=== PATIENT | male | born 1970 | race Hispanic/Latino ===

== ENCOUNTER 2024-06-12 18:44 | Emergency (ER) | payer OTHER ==
[~2024-06-12] VITALS: Ht 165.1 cm; Wt 75.7 kg
[2024-06-12] MEDS: ketOROlac 60 MG VIAL (30MG/ML) IM ONE (20:40)
[2024-06-12] MEDS: CYCLOBENZAPRINE HCL 10 MG TABLET PO ONE (20:40)
[2024-06-12] MEDS: dexaMETHasone SOD PHOSPHATE 4 MG/ML 1ML VIAL IM ONE (20:40)
[2024-06-12 20:58] VITALS: BP 138/74; PULSE 70; RESP 16; TEMP 98; O2SAT 98
[2024-06-12] MEDS ORDERED: IBUP-2077 PO (21:06)
[2024-06-12] MEDS ORDERED: CYCL10TA16 PO (21:06)
[2024-06-12] MEDS ORDERED: METH4TAB3 PO (21:06)
== END 2024-06-12 21:50 | disposition home or self-care (01) ==
LOC: EDH 18:44
DX: G57.01 Lesion of sciatic nerve, right lower limb (principal); I10 Essential (primary) hypertension; I25.2 Old myocardial infarction; Z98.890 Other specified postprocedural states
CPT/HCPCS: 99284; 72100; 96372 ×2; J1100; J1885

== ENCOUNTER 2024-10-26 23:44 | Observation (INO) | payer OTHER ==
[~2024-10-26] VITALS: Ht 165.1 cm; Wt 77.6 kg
[~2024-10-26 23:44] MED LIST: CYCL10TA16 PO; IBUP-2077 PO; METH4TAB3 PO
[2024-10-27] VITALS (11 sets, daily range): BP systolic 121–152; BP diastolic 65–75; PULSE 65–99; RESP 18–22; TEMP 98–98.4; O2SAT 97–100
[2024-10-27 00:18] LABS: CREATININE 1.3 mg/dL (0.5-1.3); POTASSIUM 3.8 mmol/L (3.5-5.1)
[2024-10-27 00:52] LABS: BASOPHILS # (AUTO) 0.03 K/uL (0.00-0.20); BASOPHILS % (AUTO) 0.4 % (0.0-5.0); EOSINOPHILS # (AUTO) 0.33 K/uL (0.00-0.70); EOSINOPHILS % (AUTO) 4.2 % (0.0-8.0); HEMATOCRIT 25.5 % (42-54); IMMATURE GRANULOCYTE ABSOLUTE 0.03 K/uL (0-1); LYMPHOCYTES # (AUTO) 1.3 K/uL (1.0-4.8); MEAN CORPUSCULAR HEMOGLOBIN 21.3 pg (27.0-33.0); MEAN CORPUSCULAR HGB CONC 29.4 g/dL (32.0-36.0); MEAN CORPUSCULAR VOLUME 72.4 fL (79-99); MONOCYTES # (AUTO) 0.4 K/uL (0.1-1.0); MONOCYTES % (AUTO) 5.2 % (3.0-13.0); NEUTROPHILS # (AUTO) 5.7 K/uL (1.8-7.7); NEUTROPHILS % (AUTO) 72.8 % (40.0-77.0); PLATELET COUNT (AUTO) 364 K/uL (130-400); RED BLOOD CELL COUNT(AUTO) 3.52 MIL/uL (4.50-6.20); RED CELL DISTRIBUTION WIDTH 19.4 % (11.0-15.5); WHITE BLOOD COUNT (AUTO) 7.8 K/uL (4.8-10.8)
[2024-10-27 01:01] LABS: ADD UA MICROSCOPIC NO; APPEARANCE,URINE CLEAR (CLEAR); BILIRUBIN,URINE NEGATIVE (NEGATIVE); COLOR,URINE COLORLESS (YELLOW); GLUCOSE, URINE (UA) NEGATIVE (NEGATIVE); KETONES,URINE NEGATIVE (NEGATIVE); LEUKOCYTE ESTERASE ,URINE NEGATIVE Leu/uL (NEGATIVE); NITRATE,URINE NEGATIVE (NEGATIVE); OCCULT BLOOD,URINE NEGATIVE (NEGATIVE); PROTEIN,URINE NEGATIVE (NEGATIVE); UROBILINOGEN,URINE 0.2 mg/dL (0.2-1.0)
--- NOTE | 2024-10-27 01:03 | ERN ---
ED Note History of Present Illness Stated Complaint: HYPERTENSION Chief Complaint: Hypertension Time Seen by MD: 23:47 Dictation: This is a 54-year-old male who stated that he woke up feeling a rubbing his chest and checked his blood pressure which was 200 over something. He had car diac stents placed recently 2 months ago in [place]. He reports that he takes Plavix and he also reports a cough for the past 1 month. He stated that he has been short of breath and unable to lay flat. He has a very scant amounts of sputum but denied any hemoptysis. No fevers chills He has smoked quite heavily for many years and stated that he quit a month ago. He has never been formally diagnosed with COPD. He also had heavy hemorrhoidal bleeding in the past few months. He was recently admitted to [facility] in [place] and was given 1 unit of blood for severe anemia. He recalls that there might have been EGD and he does not recall anyone telling him that he had ulcers. He does not believe that he had colonoscopy. Temperature 97.2 pulse 93 respirations 20 blood pressure 148/75 with a pulse oximetry of 95% on room air Chronic medical problems include hypertension, coronary artery disease status post stents Allergies: Coded Allergies: No Known Allergies (Unverified Allergy, Unknown, 06/12/24) Home Meds Active Scripts Cyclobenzaprine HCl (Flexeril) 10 Mg Tab, 10 MG PO TID for muscle sstiffness, #14 TAB 0 Refills Prov:CONOR DANIEL LUMBER YARD WORKER 06/12/24 Methylprednisolone (Medrol) 4 Mg Tab.ds.pk, 4 MG PO AD, #1 UNIT Prov:CONOR DANIEL L[employer]BER YARD WORKER 06/12/24 Ibuprofen (Ibuprofen 800 mg Tab) 800 Mg Tab, 800 MG PO Q8H PRN for fever or pain, #30 TAB 0 Refills Prov:CONOR DANIEL LUMBER YARD WORKER 06/12/24 Past Medical History Past Medical History: Anemia (Received 1 unit of PRBC in [place]), CAD, H ypertension, [place], Pneumonia, Other (Hemorrhoid) Surgical History: Other Surgical History Other: CARDIAC STENTS Family History: Negative Social History: Smokers RN Note Reviewed/Agreed w/PFSH: Yes Review of System Dictation Constitutional: Negative for fever,chills, and weight loss Eyes: Negative for injury, pain,redness, and discharge ENT: Negative for injury,pain or swelling Cardiovascular: Negative for chest pain, palpitations, and edema positive for a feeling of a rubbing his chest and high blood pressure Respiratory: Positive for shortness of breath, cough, Abdomen/GI: Negative for abdominal pain, nausea, vomiting, diarrhea, and constipation Back: Negative for injury and pain : Negative for injury, bleeding and discharge MS/Extremity: Negative for injury and deformity Skin: Negative for rash, and discoloration Neuro: Negative for headache, weakness, numbness, tingling, and seizure Psych: Negative for suicide ideation, homicidal ideation, and hallucinations Initial Vital Sign VS Vital Signs Date Time Temp Pulse Resp B/P (MAP) Pulse Ox O2 Delivery O2 Flow Rate FiO2 10/26/24 23:46 97.2 93 20 148/75 95 Room Air 10/27/24 00:28 0 21 Physical Exam Dictation General: awake, alert, NAD overweight Head/Face: Normocephalic, atraumatic Eyes: PERRL, EOMI, vision at baseline ENT: oral cavity clear, TMs clear, no signs of infection Neck: Trachea midline, supple, no nuchal rigidity Cardiovascular: RRR, normal S1/S2, No MRGs, no JVD Respiratory: Bilateral decreased air entry with end expiratory wheezes to auscultation Abdomen: Soft, non-tender, non-distended, normal bowel sounds, no guarding or rebound. Skin: Warm, dry, normal turgor, no rash MS/Extremity: Pulses equal, no cyanosis, neurovascular intact, FROM Neuro: COAx4, GCS 15, strength 5/5, CN 2-12 intact, normal cerebellar exam, normal gait, Psych: Normal behavior, mood, and affect normal Extremities-trace edema without any palpable cords, Homans sign is negative Results (Laboratory/Radiology) Laboratory/Radiology Laboratory Tests Test 10/26/24 23:59 10/27/24 00:21 10/27/24 00:41 White Blood Count 7.8 K/uL (4.8-10.8) Red Blood Count 3.52 MIL/uL (4.50-6.20) L Hemoglobin 7.5 g/dL (14.0-18.0) L Hematocrit 25.5 % (42-54) L Mean Corpuscular Volume 72.4 fL (79-99) L Mean Corpuscular Hemoglobin 21.3 pg (27.0-33.0) L Mean Corpuscular Hemoglobin Concent 29.4 g/dL (32.0-36.0) L Red Cell Distribution Width 19.4 % (11.0-15.5) H Platelet Count 364 K/uL (130-400) Mean Platelet Volume 10.6 fL (7.5-10.5) H Immature Granulocyte % (Auto) 0.4 % (0-1) Neutrophils (%) (Auto) 72.8 % (40.0-77.0) Lymphocytes (%) (Auto) 17.0 % (21.0-51.0) L Monocytes (%) (Auto) 5.2 % (3.0-13.0) Eosinophils (%) (Auto) 4.2 % (0.0-8.0) Basophils (%) (Auto) 0.4 % (0.0-5.0) Neutrophils # (Auto) 5.7 K/uL (1.8-7.7) Lymphocytes # (Auto) 1.3 K/uL (1.0-4.8) Monocytes # (Auto) 0.4 K/uL (0.1-1.0) Eosinophils # (Auto) 0.33 K/uL (0.00-0.70) Basophils # (Auto) 0.03 K/uL (0.00-0.20) Absolute Immature Granulocyte (auto 0.03 K/uL (0-1) Nucleated Red Blood Cells 0.0 % (0.0-0.19) Red Blood Cell Morphology See comments Sodium Level 139 mmol/L (136-145) Potassium Level 3.8 mmol/L (3.5-5.1) Chloride Level 106 mmol/L (101-111) Carbon Dioxide Level 27 mmol/L (21-32) Blood Urea Nitrogen 16 mg/dL (7-18) Creatinine 1.3 mg/dL (0.5-1.3) Glomerular Filtration Rate Calc 66 mL/min (>90) Random Glucose 132 mg/dL (70-105) H Total Calcium 8.1 mg/dL (8.5-10.1) L Total Creatine Kinase 207 U/L (21-232) Troponin I High Sensitivity 41 ng/L (4-75) B-Type Natriuretic Peptide 610 pg/mL (0-100) H Troponin I < 0.05 ng/mL (0.00-0.05) Urine Color COLORLESS (YELLOW) Urine Appearance CLEAR (CLEAR) Urine pH 6.0 (5.0-8.0) Urine Specific Aragon 1.008 (1.001-1.031) Urine Protein NEGATIVE mg/dL (NEGATIVE) Urine Glucose (UA) NEGATIVE mg/dL (NEGATIVE) Urine Ketones NEGATIVE mg/dL (NEGATIVE) Urine Occult Blood NEGATIVE (NEGATIVE) Urine Nitrate NEGATIVE (NEGATIVE) Urine Bilirubin NEGATIVE mg/dL (NEGATIVE) Urine Urobilinogen 0.2 mg/dL (0.2-1.0) Urine Leukocyte Esterase NEGATIVE David/uL Labs Reviewed?: Yes EKG Comment: Twelve lead EKG done on 10/27/2024 at 12:45 a.m. showed a heart rate of 84, MA interval 121, QRS 86, QT/QTC 350/414 Impression normal sinus rhythm with very prominent T-waves in the anterolateral leads small Q-waves in the lead 3 more pronounced. Interpreted by Dr. Busby ED Course ED Course Orders Procedure Category Date Status Time Vital Signs Per CPOE 10/26/24 Transmitted Routine 23:46 B-Type Natriuretic LAB 10/26/24 Complete Peptide 23:46 Chest 1vw RAD 10/26/24 Taken 23:46 12 Lead Ekg Tracing- EKG 10/26/24 Logged Technical 23:46 Oxygen By Nc/Pulse Ox CPOE 10/26/24 Transmitted 23:46 Maintain Iv CPOE 10/26/24 Transmitted 23:46 Iv Insertion CPOE 10/26/24 Transmitted 23:46 Cardiac Monitoring CPOE 10/26/24 Transmitted 23:46 Pulse Oximetry With CPOE 10/26/24 Transmitted Vs And Prn 23:46 Cbc With Differential LAB 10/26/24 Complete 23:46 Activity: Br W/Brp CPOE 10/26/24 Transmitted With Assist 23:46 Creatine Kinase, Total LAB 10/26/24 Complete 23:46 Troponin I High LAB 10/26/24 Complete Sensitivity 23:46 Urinalysis Profile LAB 10/26/24 Complete 23:46 Troponin Poc Order LAB 10/26/24 Complete Only 23:46 Bedside Troponin-I LAB.ER 10/26/24 In Process (Poc) 23:46 Basic Metabolic Panel LAB 10/26/24 Complete 23:46 Methylprednisolone PHA 10/27/24 Complete Succ 125mg (Solu-Medr 02:00 Ipratropium/Albuterol PHA 10/27/24 Complete Neb (Duoneb) 02:00 Levofloxacin 750 PHA 10/27/24 Complete Mg/D5w 150 Ml 02:00 Levofloxacin 500 PHA 10/27/24 Complete Mg/D5w 100 Ml 02:00 Current Medications Medications (Trade) Dose Ordered Sig/Chikis Route PRN Reason Start Time Stop Time Status Last Admin Dose Admin Albuterol (DUOneb) 1 UDVIAL ONCE ONCE IH 10/27/24 02:00 10/27/24 02:01 DC Levofloxacin/ Dextrose (LEvaquIN 500 MG/ D5W 100 ML) 750 mg ONCE ONCE IV 10/27/24 02:00 10/27/24 02:01 DC Levofloxacin/ Dextrose (LEvaquIN 750 MG/ D5W 150 ML) 750 mg ONCE ONCE IV 10/27/24 02:00 10/27/24 01:58 DC Methylprednisolone Sodium Succinate (Solu-medROL 125MG) 125 mg ONCE ONCE IVP 10/27/24 02:00 10/27/24 02:01 DC 10/27/24 01:58 Vital Signs Date Time Temp Pulse Resp B/P (MAP) Pulse Ox O2 Delivery O2 Flow Rate FiO2 10/27/24 00:28 92 23 154/83 100 Room Air* 0 21 10/26/24 23:46 97.2 93 20 148/75 95 Room Air We will perform diagnostic labs, advanced imaging and administer medications according to the patient's complaint. Once the results are available, will review and personally interpreted the labs to rule out any acute life- threatening emergency the trach require immediate intervention and treatment. I will then re-evaluate the patient after treatment and diagnostic exams have return to determine whether the patient requires any further testing, can safely be discharged home or need further admission to hospital for additional treatment and evaluation. Labs reviewed CBC showed a hemoglobin of 7.5 BNP 7 showed a BUN and creatinine of 16 and 1.3 see case 207 troponins are negative. Chest x-ray shows bilateral increased interstitial markings. I have recommended admission to the hospital for management of COPD with acute exacerbation and also to address the anemia to determine if he needs iron infusions. 2:10 a.m. patient accepted by [facility] mid-level provider for hospitalist group. Medical Decision Making MDM MDM: Differential diagnosis: Shortness of breath likely secondary to progressive coronary artery disease, diastolic dysfunction, congestive heart failure, undiagnosed COPD, severe anemia likely from his hemorrhoidal bleeding Rationale: Tests considered and ordered secondary to shared decision making include: labs, ECG and radiology Previous outside records reviewed: Old ER visits. Risk of complication and/or morbidity or mortality of patient management: None Medications-Per medication reconciliation Need for hospitalization: Patient does meet criteria for hospitalization. Need for emergency major/minor surgery: No There are no social concerns with this patient. Prescription drug management Prescriptions will include symptomatic care Patient's prior external medical records from other ER visits were reviewed by me as indicated. Prior testing and results from previous visits were reviewed. Prior tests were taken into account with medical decision making and resource utilization, independent historian/historians were used to obtain complete medical history. I independently interpreted the test that were performed, results were reviewed by me and considered findings on radiology if ordered. Medical management and examination interpretation discussions were had by me with other qualified healthcare professionals as indicated for the patient's care. Problem List Problem List: (1) Acute exacerbation of chronic obstructive pulmonary disease (COPD) (2) Coronary artery disease (3) H/O heart artery stent (4) Hypertension (5) Acute kidney injury (6) Severe anemia (7) History of tobacco abuse DX & DISP Disposition: Inpatient Decision to Admit Time: 01:10 Departure Impression: Primary Impression: Acute exacerbation of chronic obstructive pulmonary disease (COPD) Additional Impressions: Coronary artery disease, H/O heart artery stent, Hypertension, Acute kidney injury, Severe anemia, History of tobacco abuse Condition: Stable Additional Instructions: Patient was informed of all the diagnostic labs and procedures conducted in the emergency room today and demonstrated understanding of the results. I personally reviewed and interpreted all the diagnostic exams performed in the ER today. The patient will be admitted to the hospital for further treatment and evaluation. Disposition-admit to facility Condition-stable/guarded Course-uncertain at this time Pain status-decreased Assessment-exam unchanged Admission Certification- I certify that the patients status is appropriate and is based on my best clinical judgment and the patient's condition as documented in the medical records Referrals: ROXANNA CHANDRA MD (PCP) JC BUSBY MD Oct 27, 2024 01:03
[2024-10-27 01:09] LABS: B-TYPE NATRIURETIC PEPTIDE 610 pg/mL (0-100)
[2024-10-27] MEDS: Solu-medROL 125MG VIAL IVP ONE (01:58)
[2024-10-27] MEDS ORDERED: levoFLOXacin 750 MG/D5W 150ML BAG IV ONE (02:00)
[2024-10-27] MEDS: IpraTROPium/alBUTERol SULFATE 3 ML SOLUTION IH ONE (02:16)
--- NOTE | 2024-10-27 03:40 | NUR ---
BANDAGE WRAPPING MACHINE OPERATOR KRISTINA NOTIFIED ABOUT PT'S STATUS. ORDERS GIVEN AT THIS TIME.
--- NOTE | 2024-10-27 03:40 | NUR ---
PT PLACED ON NON-REBREATHER AT THIS TIME.
[2024-10-27] MEDS: levoFLOXacin 500 MG/D5W 100 ML IV ONE (03:44)
--- NOTE | 2024-10-27 03:44 | NUR ---
RT CALLED AT THIS TIME
--- NOTE | 2024-10-27 04:01 | NUR ---
RT AT BEDSIDE AT THIS TIME
--- NOTE | 2024-10-27 04:15 | NUR ---
PT TAKEN OFF NON REBREATHER BY RT AT THIS TIME. PT PLACED ON 3L NC. PT SHOWS NO SIGNS OF DISTRESS AT THIS TIME.
--- NOTE | 2024-10-27 05:30 | HP ---
[facility] HISTORY AND PHYSICAL Date of Service: Oct 27, 2024 Time of Service: 05:30 ROXANNA CHANDRA MD (PCP) Supervising physicians: Dr. Cai and Dr. Roel Kunz HISTORY OF PRESENT ILLNESS: Mr. Huang is a 54-year-old male for evaluation of hypertension. The patient reported that he woke up feeling a rubbing in his chest and checked his blood pressure and it was 200 systolic. The patient reports he has cardiac stents placed recently about two months ago in [facility]. He reports that he takes Plavix. Patient's reports a cough for the past month. The shortness of breath is exacerbated with the lying flat. He reports very scant amount of sputum, denies hemoptysis, fevers, chills. He reports he is a heavy smoker for many years and quit a month ago. He has no ever been diagnosed with COPD. Patient also reports having hemorrhoidal bleeding for the past few months. He was recently admitted to [facility] in [place] and was given1 unit of a PRBCs for severe anemia. He recalls that there might have been EGD and he does not recall anyone telling him that he has had ulcers. He does not believe that he has had a colonoscopy. EKG done on 10/27/2024 at 12:45 a.m. showed a heart rate of 84, Impression normal sinus rhythm with very prominent T-waves in the anterolateral leads small Q-waves in the lead 3 more pronounced. Labs: CBC showed a hemoglobin of 7.5 BNP 610, BUN and creatinine of 16 and 1.3. CK 207, troponins are negative. DDIMER 630. Chest x-ray shows bilateral increased interstitial markings. REVIEW OF SYSTEMS 12-point ROS reviewed with patient. All pertinent positives mentioned above. Otherwise negative, noncontributory, or non-pertinent. Past Medical History: Anemia (Received 1 unit of PRBC in [place]), CAD, Hypertension, [place], Pneumonia, Other (Hemorrhoid) Surgical History: CARDIAC STENTS Family History: Negative Social History: Smoker Coded Allergies: No Known Allergies (Unverified Allergy, Unknown, 06/12/24) PHYSICAL EXAM GENERAL APPEARANCE: The patient is awake, alert, and oriented, in no acute cardiopulmonary distress. NEUROLOGICAL: Cranial nerves II-XII grossly intact. Motor is 5/5 in bilateral upper and lower extremities proximal to distal. No sensory deficits. HEENT: Face is symmetric. Pupils are equal and reactive. Extraocular movements are intact. NECK: Supple. No JVD. No thyromegaly. No submental, submandibular, pre- /postauricular, occipital or supraclavicular lymphadenopathy. CHEST: Normal chest expansion. No Telemetry. LUNGS: Absence of any rales, rhonchi or any wheezing. CARDIOVASCULAR: Regular. S1 and S2 normal. No appreciable rubs, murmurs or gallops. ABDOMEN: Soft, nontender, and nondistended. There is no rebound, voluntary guarding, or rigidity. : Deferred. No Chan. EXTREMITIES: Non-edematous and not cyanotic. No clubbing. Good capillary re fill. SKIN: No skin breakdown. Vital Sign (Last 24 Hours) 10/26/24 10/27/24 23:46 04:15 Temp 97.2 Pulse 73 Resp 18 B/P (MAP) 143/61 Pulse Ox 97 O2 Delivery Nasal Cannula* O2 Flow Rate 3 FiO2 32 LABS: Laboratory: Test 10/27/24 00:41 10/27/24 00:21 10/26/24 23:59 Range/Units Urine Color COLORLESS YELLOW Urine Appearance CLEAR CLEAR Urine pH 6.0 5.0-8.0 Urine Specific Hilger 1.008 1.001-1.031 Urine Protein NEGATIVE NEGATIVE mg/dL Urine Glucose (UA) NEGATIVE NEGATIVE mg/dL Urine Ketones NEGATIVE NEGATIVE mg/dL Urine Occult Blood NEGATIVE NEGATIVE Urine Nitrate NEGATIVE NEGATIVE Urine Bilirubin NEGATIVE NEGATIVE mg/dL Urine Urobilinogen 0.2 0.2-1.0 mg/dL Urine Leukocyte Esterase NEGATIVE NEGATIVE David/uL Troponin I < 0.05 0.00-0.05 ng/mL White Blood Count 7.8 4.8-10.8 K/uL Red Blood Count 3.52 L 4.50-6.20 MIL/uL Hemoglobin 7.5 L 14.0-18.0 g/dL Hematocrit 25.5 L 42-54 % Mean Corpuscular Volume 72.4 L 79-99 fL Mean Corpuscular Hemoglobin 21.3 L 27.0-33.0 pg Mean Corpuscular Hemoglobin Concent 29.4 L 32.0-36.0 g/dL Red Cell Distribution Width 19.4 H 11.0-15.5 % Platelet Count 364 130-400 K/uL Mean Platelet Volume 10.6 H 7.5-10.5 fL Immature Granulocyte % (Auto) 0.4 0-1 % Neutrophils (%) (Auto) 72.8 40.0-77.0 % Lymphocytes (%) (Auto) 17.0 L 21.0-51.0 % Monocytes (%) (Auto) 5.2 3.0-13.0 % Eosinophils (%) (Auto) 4.2 0.0-8.0 % Basophils (%) (Auto) 0.4 0.0-5.0 % Neutrophils # (Auto) 5.7 1.8-7.7 K/uL Lymphocytes # (Auto) 1.3 1.0-4.8 K/uL Monocytes # (Auto) 0.4 0.1-1.0 K/uL Eosinophils # (Auto) 0.33 0.00-0.70 K/uL Basophils # (Auto) 0.03 0.00-0.20 K/uL Absolute Immature Granulocyte (auto 0.03 0-1 K/uL Nucleated Red Blood Cells 0.0 0.0-0.19 % Red Blood Cell Morphology See comments Sodium Level 139 136-145 mmol/L Potassium Level 3.8 3.5-5.1 mmol/L Chloride Level 106 101-111 mmol/L Carbon Dioxide Level 27 21-32 mmol/L Blood Urea Nitrogen 16 7-18 mg/dL Creatinine 1.3 0.5-1.3 mg/dL Glomerular Filtration Rate Calc 66 >90 mL/min Random Glucose 132 H 70-105 mg/dL Total Calcium 8.1 L 8.5-10.1 mg/dL Total Creatine Kinase 207 21-232 U/L Troponin I High Sensitivity 41 4-75 ng/L B-Type Natriuretic Peptide 610 H 0-100 pg/mL DIAGNOSTICS / RADIOLOGY: [ ] ASSESSMENT: Acute hypoxemic respiratory failure, POA Acute exacerbation of CHF, POA Coronary artery disease s/p reason heart artery stents Hypertension Acute kidney injury Severe anemia History of tobacco use PLAN: Admit to medical floor with telemetry monitoring. Monitor respiratory status closely. Continue oxygen supplementation to keep SpO2 equal to greater than 92%. Albuterol and Atrovent scheduled. Lasix 40 mg IV q.12. Start aspirin 81 mg p.o. daily. Atorvastatin 40 mg p.o. daily. Trend BNP. Obtain 2D echo. Fluid restrictions a 1200 mL in24 hours. Strict I&Os. Daily weight. Reconcile home medications once available. Education done on smoking cessation. Start antibiotic therapy: Doxycycline IV and Rocephin IV. CT PE protocol. Bilateral venous Doppler. P.r.n. medications for: Pain management, nausea, vomiting, constipation, fever, hypertension. Glucometer checks a.c. and HS with insulin regular sliding scale per protocol. Blood pressure checks every 4 hours and as needed. Reconcile home medications once available. Monitor renal and liver function. Monitor electrolytes and treat accordingly. A.m. labs: CBC, BMP, Mag, phos, TSH, A1c. ADVANCED CARE PLANNING 1. Which of the following were discussed? Hospice Care - No Therapeutic options - Yes Advance Directives - Yes Other discussions - 2. Discussed with who? Patient 3. Voluntary nature of this service was explained to the patient? Yes 4. Amount of time spent - __ over 35 minute 5. Reviewed by Physician? (if this service was performed by NPP) Yes / No Patient seen and examined by me. Agree with note by HSE SPECIALIST SEE ADDITIONAL ORDERS PER CHART DISCUSSED WITH NURSING STAFF CASEY SHAFFER Oct 27, 2024 05:30
[2024-10-27] MEDS ORDERED: LACTULOSE 20 GM/30 ML UDCUP PO PRN (06:00)
[2024-10-27] MEDS ORDERED: acetaMINOPHEN 325 MG TAB PO PRN (06:00)
[2024-10-27] MEDS ORDERED: ondanSETRON 4MG INJ IVP PRN (06:00)
[2024-10-27] MEDS ORDERED: doCUSate SODIUM 100 MG CAP PO PRN (06:00)
[2024-10-27] MEDS ORDERED: acetaMINOPHEN 650 MG SUPPOSITORY RC PRN (06:00)
[2024-10-27] MEDS ORDERED: TEMAZepam 15 MG CAPSULE PO PRN (06:00)
[2024-10-27] MEDS: furoSEMIDE 40MG VIAL IV SCH (06:12)
[2024-10-27 06:35] LABS: HEMATOCRIT 28.9 % (42-54); MEAN CORPUSCULAR HEMOGLOBIN 21.4 pg (27.0-33.0); MEAN CORPUSCULAR HGB CONC 29.1 g/dL (32.0-36.0); MEAN CORPUSCULAR VOLUME 73.5 fL (79-99); RED BLOOD CELL COUNT(AUTO) 3.93 MIL/uL (4.50-6.20); RED CELL DISTRIBUTION WIDTH 19.3 % (11.0-15.5); WHITE BLOOD COUNT (AUTO) 11.4 K/uL (4.8-10.8)
[2024-10-27 06:58] LABS: ALBUMIN 3.7 g/dL (3.5-5.0); BILIRUBIN,TOTAL 0.2 mg/dL (0.2-1.0); CREATININE 1.2 mg/dL (0.5-1.3); POTASSIUM 4.1 mmol/L (3.5-5.1); THYROID STIMULATING HORMONE 1.19 uIU/mL (0.36-3.74); TOTAL PROTEIN, SERUM 7.8 g/dL (6.0-8.3)
[2024-10-27] MEDS: ALBUTEROL 0.083% 2.5 MG/3 ML INH IH SCH (07:05)
[2024-10-27] MEDS: IpraTROPium 0.5 MG/2.5 ML INH IH SCH (07:05)
--- NOTE | 2024-10-27 07:29 | NUR ---
REPORT GIVEN TO JONATHAN DECKER AT THIS TIME
--- NOTE | 2024-10-27 07:49 | PN ---
[facility] PROGRESS NOTE Date of Service: Oct 27, 2024 Time of Service: 07:41 SUBJECTIVE: [54 year old male with significant h/o CHF, CAD with stent placement. He presented to the ED with c/o SOB and Chest pain. Apparently he woke up early this morning due to chest pain. He also has h/o of chronic smoking for many years recently quit. Admitted for CHF exacerbation and acute respiratory failure requiring oxygen supplementation via nasal canula. He was started with IV antbx with doxy and rocephin. ] REVIEW OF SYSTEMS 12-point ROS reviewed with patient. All pertinent positives mentioned above. Otherwise negative, noncontributory, or non-pertinent. PHYSICAL EXAM GENERAL APPEARANCE: The patient is awake, alert, and oriented, in no acute cardiopulmonary distress. NEUROLOGICAL: Cranial nerves II-XII grossly intact. Motor is 5/5 in bilateral upper and lower extremities proximal to distal. No sensory deficits. HEENT: Face is symmetric. Pupils are equal and reactive. Extraocular movements are intact. NECK: Supple. No JVD. No thyromegaly. No submental, submandibular, pre-/ postauricular, occipital or supraclavicular lymphadenopathy. CHEST: Normal chest expansion. No Telemetry. LUNGS: Absence of any rales, rhonchi or any wheezing. CARDIOVASCULAR: Regular. S1 and S2 normal. No appreciable rubs, murmurs or gallops. ABDOMEN: Soft, nontender, and nondistended. There is no rebound, voluntary guarding, or rigidity. : Deferred. No Chan. EXTREMITIES: Non-edematous and not cyanotic. No clubbing. Good capillary refill. SKIN: No skin breakdown. Vital Signs (last 8hr) Date Time Temp Pulse Resp B/P (MAP) Pulse Ox O2 Delivery O2 Flow Rate FiO2 10/27/24 07:24 74 18 146/56 97 Nasal Cannula* 3 32 10/27/24 07:11 65 20 N/Cannula Low lpm 3.0 10/27/24 07:09 65 20 10/27/24 04:15 73 18 143/61 97 Nasal Cannula* 3 32 10/27/24 03:40 73 22 138/67 97 Non-Rebreather+ 11 40 10/27/24 02:42 80 23 144/78 97 Nasal Cannula* 2 28 2/2/25 02:17 76 22 10/27/24 01:40 81 24 132/68 100 Nasal Cannula* 2 10/27/24 00:28 92 23 154/83 100 Room Air* 0 21 10/26/24 23:46 97.2 93 20 148/75 95 Room Air LABS: Laboratory: Test 10/27/24 06:25 10/27/24 00:41 10/27/24 00:21 10/26/24 23:59 Range/Units White Blood Count 11.4 #H 4.8-10.8 K/uL Red Blood Count 3.93 L 4.50-6.20 MIL/uL Hemoglobin 8.4 L 14.0-18.0 g/dL Hematocrit 28.9 L 42-54 % Mean Corpuscular Volume 73.5 L 79-99 fL Mean Corpuscular Hemoglobin 21.4 L 27.0-33.0 pg Mean Corpuscular Hemoglobin Concent 29.1 L 32.0-36.0 g/dL Red Cell Distribution Width 19.3 H 11.0-15.5 % Platelet Count 420 H 130-400 K/uL Mean Platelet Volume 11.0 H 7.5-10.5 fL Nucleated Red Blood Cells 0.0 0.0-0.19 % D-Dimer Quantitative (PE/DVT) 630 *H 0-500 ng/mL Sodium Level 142 136-145 mmol/L Potassium Level 4.1 3.5-5.1 mmol/L Chloride Level 107 101-111 mmol/L Carbon Dioxide Level 28 21-32 mmol/L Blood Urea Nitrogen 16 7-18 mg/dL Creatinine 1.2 0.5-1.3 mg/dL Glomerular Filtration Rate Calc 72 >90 mL/min Random Glucose 161 H 70-105 mg/dL Total Calcium 8.8 8.5-10.1 mg/dL Total Bilirubin 0.2 0.2-1.0 mg/dL Aspartate Amino Transf (AST/SGOT) 21 10-37 U/L Alanine Aminotransferase (ALT/SGPT) 33 12-78 U/L Alkaline Phosphatase 76 50-136 U/L Troponin I High Sensitivity 48 4-75 ng/L Total Protein 7.8 6.0-8.3 g/dL Albumin 3.7 3.5-5.0 g/dL Thyroid Stimulating Hormone (TSH) 1.19 0.36-3.74 uIU/mL Urine Color COLORLESS YELLOW Urine Appearance CLEAR CLEAR Urine pH 6.0 5.0-8.0 Urine Specific [place] 1.008 1.001-1.031 Urine Protein NEGATIVE NEGATIVE mg/dL Urine Glucose (UA) NEGATIVE NEGATIVE mg/dL Urine Ketones NEGATIVE NEGATIVE mg/dL Urine Occult Blood NEGATIVE NEGATIVE Urine Nitrate NEGATIVE NEGATIVE Urine Bilirubin NEGATIVE NEGATIVE mg/dL Urine Urobilinogen 0.2 0.2-1.0 mg/dL Urine Leukocyte Esterase NEGATIVE NEGATIVE David/uL Troponin I < 0.05 0.00-0.05 ng/mL Immature Granulocyte % (Auto) 0.4 0-1 % Neutrophils (%) (Auto) 72.8 40.0-77.0 % Lymphocytes (%) (Auto) 17.0 L 21.0-51.0 % Monocytes (%) (Auto) 5.2 3.0-13.0 % Eosinophils (%) (Auto) 4.2 0.0-8.0 % Basophils (%) (Auto) 0.4 0.0-5.0 % Neutrophils # (Auto) 5.7 1.8-7.7 K/uL Lymphocytes # (Auto) 1.3 1.0-4.8 K/uL Monocytes # (Auto) 0.4 0.1-1.0 K/uL Eosinophils # (Auto) 0.33 0.00-0.70 K/uL Basophils # (Auto) 0.03 0.00-0.20 K/uL Absolute Immature Granulocyte (auto 0.03 0-1 K/uL Red Blood Cell Morphology See comments Total Creatine Kinase 207 21-232 U/L B-Type Natriuretic Peptide 610 H 0-100 pg/mL Current Medications Medications (Trade) Dose Ordered Sig/Chikis Route PRN Reason Start Time Stop Time Status Last Admin Dose Admin Acetaminophen (TYLenol 325MG TAB) 650 mg Q6H PRN PO FEVER/MILD PAIN LEVEL 1-3 10/27/24 06:00 11/26/24 05:59 Acetaminophen (TYLenol 650MG SUPPOSITORY) 650 mg Q6H PRN RC FEVER / MILD PAIN 1-3 IF NPO 10/27/24 06:00 11/26/24 05:59 Albuterol Sulfate (Proventil 0.083% 2.5mg/3ml) 2.5 mg [id number] IH 10/27/24 06:00 11/26/24 05:59 10/27/24 07:05 2.5 MG Aspirin (Aspirin 81mg Chew Tab) 81 mg DAILY PO 10/27/24 09:00 11/26/24 08:59 Ceftriaxone Sodium (ROCEphine 1G INJ) 1 gm DAILY10 IVP 10/27/24 10:00 11/06/24 09:59 Docusate Sodium (COLace 100MG CAP) 100 mg BID PRN PO c 10/27/24 06:00 11/26/24 05:59 Doxycycline Hyclate (Doxycycline 100mg+NS 250ml) 100 mg BID IV 10/27/24 09:00 11/06/24 08:59 Furosemide (LASix 40MG VIAL) 40 mg Q12H IV 10/27/24 06:00 11/26/24 05:59 10/27/24 06:12 40 MG Insulin Human Regular (humuLIN R 100 UNIT/ML 3ML) INSULIN SLIDING SCAL... ACHS SQ 10/27/24 07:30 11/26/24 07:29 Ipratropium [place] (AtrovENT UD) 0.5 mg [id number] IH 10/27/24 06:00 11/26/24 05:59 10/27/24 07:05 0.5 MG Lactulose (Constulose 20gm/ 30ml Udcup) 20 gm Q6H PRN PO CONSTIPATION 10/27/24 06:00 11/26/24 05:59 Ondansetron HCl (zoFRAN 4MG INJ) 4 mg Q6H PRN IVP NAUSEA/VOMITING 10/27/24 06:00 11/26/24 05:59 Temazepam (restORIL 15 MG CAP) 15 mg HS PRN PO INSOMNIA/SLEEP 10/27/24 06:00 11/26/24 05:59 DIAGNOSTICS / RADIOLOGY: [ ] ASSESSMENT: Acute hypoxemic respiratory failure on 3LPM NC with sats of 97%, POA Acute exacerbation of CHF, POA Suspected COPD exacerbation, POA Coronary artery disease s/p reason heart artery stents Hypertension Acute kidney injury Severe anemia History of tobacco use PLAN: Admit to medical telemetry floor We will continue oxygen supplementation to keep oxygen at 92% We will trend BNP We will trend troponin 2DECHO will be ordered Diuretics will be initiated with Lasix 40 mg IV q12h We will request his home medications Counseled on smoking cessation We will await for D-dimer, a1c result For now continue supportive care Labs in am GI and DVT ppx Case discussed with Dr. Trell lopezove plan was formulated ATTESTATION BY PHYSICIAN I have seen and examined the patient. I reviewed the documentation, medical decision making, and treatment plan as noted by the mid-level provider above. I agree with the findings and plan of care. ANGEL LUCIA MD, JANICE [facility] Oct 27, 2024 07:49
--- NOTE | 2024-10-27 08:28 | HMCIMG ---
Exam Type: CHEST 1VW Clinical Information: CHEST PAIN Comparison: None Findings: The lungs are clear of infiltrates. The heart is normal in size. The bony and soft tissue structures of the chest are unremarkable. Impression: Clear lungs.
[2024-10-27] MEDS ORDERED: IOHEXOL 350 MG/ML 100ML INFUS..BTL IV ONE (08:41)
--- NOTE | 2024-10-27 08:52 | NUR ---
PENDING IV SITE & CONSENT FOR CTA EXAM.
[2024-10-27] MEDS: DOXYCYCLINE 100MG+NS 250ML IV SCH (09:17)
[2024-10-27] MEDS: INSULIN humuLIN R 100 UNIT/ML 3ML SQ SCH (09:17)
[2024-10-27] MEDS: ASPIRIN 81MG CHEW TAB PO SCH (09:17)
--- NOTE | 2024-10-27 09:46 | HMCIMG ---
CT angiogram chest CLINICAL INDICATION: SOB, elevated DDIMER COMPARISON: None. CT Dose Index (CTDI): 113.50 mGy Dose Length Product (DLP): 1408.10 total mGy PROTOCOL: Contrast: 100 cc of Isovue-370, injected IV, no complications Examination is done at 2.5 millimeter volumetric acquisition after contrast administration. Photography is done at 5 millimeter thick intervals for the thorax. FINDINGS: There is no evidence of pulmonary embolism. The airway is intact. The trachea and major bronchi are unremarkable. No pulmonary infiltrates or mass lesions are seen. No pleural effusions are identified. The exam of the jaylin and mediastinum is unremarkable. No evidence of hilar enlargement is seen. The aorta shows no aneurysmal dilatation or significant atheromatous calcification. There is no thoracic aortic dissection. No significant brachiocephalic vascular abnormalities are seen. The heart is unremarkable. It is not enlarged. No significant coronary arterial calcifications are seen. There is no pericardial effusion. The rib cage appears unremarkable. The soft tissues of the chest wall are unremarkable. The dorsal spine shows no significant abnormalities. Limited evaluation of the upper abdomen demonstrates no gross abnormalities. IMPRESSION: No evidence of pulmonary embolism. This study was performed using dose reduction techniques to include automated exposure control and/or adjustment of the mA and/or kV according to patient size.
[2024-10-27] MEDS: cefTRIAXone 1G VIAL IVP SCH (11:46)
[2024-10-27] MEDS ORDERED: DULO30CA52 PO (12:06)
[2024-10-27] MEDS ORDERED: METO-391 PO (12:06)
[2024-10-27] MEDS ORDERED: EZET10TA48 PO (12:06)
[2024-10-27] MEDS ORDERED: LOSA50TA64 PO (12:06)
[2024-10-27] MEDS ORDERED: CLOP75TA32 PO (12:06)
[2024-10-27] MEDS ORDERED: ATOR40TA71 PO (12:06)
[2024-10-27] MEDS ORDERED: hydrALAZine 20MG/ML VIAL IV PRN (12:30)
[2024-10-27 14:19] LABS: HEMATOCRIT 26.7 % (42-54); MEAN CORPUSCULAR HEMOGLOBIN 20.8 pg (27.0-33.0); MEAN CORPUSCULAR HGB CONC 28.8 g/dL (32.0-36.0); RED BLOOD CELL COUNT(AUTO) 3.71 MIL/uL (4.50-6.20); RED CELL DISTRIBUTION WIDTH 19.4 % (11.0-15.5); WHITE BLOOD COUNT (AUTO) 6.9 K/uL (4.8-10.8)
[2024-10-27 14:53] LABS: % IRON SATURATION 2.5 % (30-44)
[2024-10-27 15:19] LABS: HEMOGLOBIN A1C 6.6 % (4.0-6.0)
--- NOTE | 2024-10-27 16:14 | EKG ---
[facility] Test Date: 2024-10-27 Test Time: 00:45:25 Pat Name: JOSH SAWYER Department: [facility] Room: 227 Gender: M Supervisor Nuclear Medicine: 1555 : 1970 Requested By: JC REYNA Order Number: [id number] Reading MD: Josh Espinal Measurements Intervals [place] Rate: 84 P: 55 SC: 121 QRS: 33 QRSD: 86 T: 17 QT: 350 QTc: 414 Interpretive Statements Sinus rhythm No previous ECG available for comparison Electronically Signed On 10-28-2024 18:20:17 PAEDIATRIC PHYSIOTHERAPIST by Josh Espinal Please click the below link to view image of tracing.
--- NOTE | 2024-10-27 16:58 | HMCIMG ---
US VENOUS DOPPLER BILATERAL HISTORY: Shortness of breath COMPARISON: None TECHNIQUE: Bilateral lower extremity venous Doppler ultrasound study was performed. FINDINGS: The common femoral, femoral, popliteal, and posterior tibial veins are visualized. Normal flow with augmentation and compressibilities are demonstrated. The greater saphenous veins are also seen and grossly patent. IMPRESSION: 1. No evidence of deep venous thrombosis is seen.
--- NOTE | 2024-10-27 19:17 | HMCSR ---
APPROVED REPORT EXAM: Two-dimensional and M-mode echocardiogram with Doppler and color Doppler. INDICATION ICD: Dyspnea, recent cardiac stents 2D Dimensions RVDd3.6 cmLVEF(%)61.8 (>50%)LVED Vol(simp.)125.0 mL IVSd1.1 (0.7-1.1cm)FS(%)33 %LVES Vol(simp.)40.2 mL LVDd5.1 (3.8-5.6cm)LA (2D)5.1 (1.6-4.0cm)LVEF(%, simp.)68 % PWd1.1 (0.7-1.1cm)Ao Root(2D)3.0 (2.0-3.7cm)LA ESV INDEX (4CH)43.30 mL/m2 IVSs1.2 cmLVOT diam2.2 (1.8-2.4cm)LA ESV INDEX (2CH)36.40 mL/m2 LVDs3.4 (2.5-4.0cm)LA ESV INDEX (BP)41.30 mL/m2 PWs1.3 cm Deformation Strain Apical 425.0 % Apical 221.0 % Apical 323.0 % Global Rajqmz30.0 % M-Mode Dimensions EPSS0.9 cm LA (MM)5.1 (1.6-4.0cm) Ao Root(MM)2.7 (2.0-3.7cm) Aortic Valve AoV VTI0.4 mAo Mean GR8.0 mmHgLVOT VTI0.24 m SELENA (VMAX)2.4 cm2AVA (VTI) 2.4 cm2 Mitral Valve MV E Vmax73.2 cm/sDECEL Kfyw795 ms MV A Vmax48.0 cm/sP 1/2 T62 ms E/A ratio1.5MVA (PHT)3.6 cm2 MR Max PG60 mmHg TDI E/E' Medial9.9E/E' Lateral8.0 Medial E' Peak V7.40 cm/sLateral E' Peak V9.10 cm/s Pulmonary Valve PV Vmax1.3 m/s PV Peak GR6.9 mmHg Left Ventricle The left ventricle is normal size. GLS -23.0%. There is normal left ventricular wall thickness. The L VEF is 55-60%. The left ventricular diastolic function is normal. Right Ventricle The right ventricle is normal size. The right ventricular systolic function is normal. Atria The left atrium is mildly dilated. The right atrium is mildly dilated. Aortic Valve The aortic valve is normal in structure. No aortic regurgitation is present. There is no aortic valvu lar stenosis. Mitral Valve The mitral valve is normal in structure. There is trace of mitral valve regurgitation noted. There is no mitral valve stenosis. Tricuspid Valve The tricuspid valve is normal in structure. There is trace of tricuspid valve regurgitation noted. Pulmonic Valve The pulmonary valve is normal in structure. There is no pulmonic valvular regurgitation. Great Vessels The aortic root is normal in size. The IVC is normal in size and collapses >50% with inspiration. Pericardium There is no pericardial effusion. Other Information Quality : Adequate Conclusion The left ventricle is normal size. The LVEF is 55-60%. The left ventricular diastolic function is normal. The right ventricle is normal size. The right ventricular systolic function is normal. The left atrium is mildly dilated. The right atrium is mildly dilated. No valvular pathology. No pericardial effusion.
[2024-10-27] MEDS: atorVAStatin 40 MG TABLET PO SCH (20:04)
[2024-10-27 21:05] LABS: HEMATOCRIT 27.1 % (42-54); MEAN CORPUSCULAR HEMOGLOBIN 21.3 pg (27.0-33.0); MEAN CORPUSCULAR HGB CONC 29.5 g/dL (32.0-36.0); MEAN CORPUSCULAR VOLUME 72.1 fL (79-99); RED BLOOD CELL COUNT(AUTO) 3.76 MIL/uL (4.50-6.20); RED CELL DISTRIBUTION WIDTH 19.8 % (11.0-15.5); WHITE BLOOD COUNT (AUTO) 9.5 K/uL (4.8-10.8)
--- NOTE | 2024-10-27 22:00 | NUR ---
Noted rima red blood when collecting stool sample for occult blood stool, pt stated to have hemorrhoids.
[2024-10-28] VITALS (15 sets, daily range): BP systolic 126–141; BP diastolic 65–82; PULSE 72–100; RESP 16–21; TEMP 97.8–98.9; O2SAT 97–100
[2024-10-28 04:41] LABS: BASOPHILS # (AUTO) 0.01 K/uL (0.00-0.20); BASOPHILS % (AUTO) 0.1 % (0.0-5.0); HEMATOCRIT 24.5 % (42-54); IMMATURE GRANULOCYTE ABSOLUTE 0.04 K/uL (0-1); LYMPHOCYTES # (AUTO) 1.8 K/uL (1.0-4.8); LYMPHOCYTES % (AUTO) 17.4 % (21.0-51.0); MEAN CORPUSCULAR HEMOGLOBIN 21.1 pg (27.0-33.0); MEAN CORPUSCULAR HGB CONC 29.4 g/dL (32.0-36.0); MEAN CORPUSCULAR VOLUME 71.8 fL (79-99); MONOCYTES # (AUTO) 0.8 K/uL (0.1-1.0); MONOCYTES % (AUTO) 8.1 % (3.0-13.0); NEUTROPHILS # (AUTO) 7.4 K/uL (1.8-7.7); PLATELET COUNT (AUTO) 374 K/uL (130-400); RED BLOOD CELL COUNT(AUTO) 3.41 MIL/uL (4.50-6.20); RED CELL DISTRIBUTION WIDTH 19.9 % (11.0-15.5); WHITE BLOOD COUNT (AUTO) 10.1 K/uL (4.8-10.8)
[2024-10-28 05:14] LABS: CREATININE 1.4 mg/dL (0.5-1.3); PHOSPHORUS 4.6 mg/dL (2.5-4.9); POTASSIUM 3.5 mmol/L (3.5-5.1)
[2024-10-28 05:26] LABS: B-TYPE NATRIURETIC PEPTIDE 148 pg/mL (0-100)
[2024-10-28] MEDS ORDERED: PoTASSium chloRIDE 20MEQ/100ML 100 ML IV PRN (06:00)
[2024-10-28] MEDS: PoTASSium chl 10% ELIXIR 20MEQ 20 MEQ/15 ML UDCUP PO PRN (06:06)
--- NOTE | 2024-10-28 08:26 | EKG ---
[facility] Test Date: 2024-10-27 Test Time: 03:33:14 Pat Name: JOSH SAWYER Department: [facility] Room: 227 1 Gender: M Program Director Scouting: 1555 : 1970 Requested By: ROBBY IBRAHIM Order Number: [id number] Reading MD: Josh Espinal Measurements Intervals [place] Rate: 69 P: 37 IA: 130 QRS: 16 QRSD: 81 T: 15 QT: 371 QTc: 397 Interpretive Statements Sinus rhythm Inferior infarct, old Compared to ECG 10/27/2024 00:45:25 Myocardial infarct finding now present Electronically Signed On 10-28-2024 18:20:26 BATTERY REPAIRER by Josh Espinal Please click the below link to view image of tracing.
[2024-10-28] MEDS: PoTASSium chloRIDE 20MEQ ER 20 MEQ ERTAB PO PRN (08:50)
[2024-10-28 13:21] LABS: HEMATOCRIT 26.9 % (42-54); MEAN CORPUSCULAR HEMOGLOBIN 21.4 pg (27.0-33.0); MEAN CORPUSCULAR HGB CONC 29.7 g/dL (32.0-36.0); MEAN CORPUSCULAR VOLUME 72.1 fL (79-99); PLATELET COUNT (AUTO) 414 K/uL (130-400); RED BLOOD CELL COUNT(AUTO) 3.73 MIL/uL (4.50-6.20); RED CELL DISTRIBUTION WIDTH 19.9 % (11.0-15.5); WHITE BLOOD COUNT (AUTO) 7.5 K/uL (4.8-10.8)
[2024-10-28 13:29] LABS: % IRON SATURATION 2.7 % (30-44)
[2024-10-28 14:21] LABS: LYMPHOCYTES % (MANUAL) 28 % (22-44); MAN.DIFF COMMENT-IMPRESSION MANUAL DIFFERENTIAL; MONOCYTES % (MANUAL) 5 % (2-9); SEGMENTED NEUTROPHILS % 67 % (40-70); TOTAL CELLS COUNTED 100
[2024-10-28 14:22] LABS: PLATELET MORPHOLOGY COMMENT INCREASED; WBC MORPHOLOGY REACTIVE LYMPHS 1+
[2024-10-28] MEDS: cloPIDOgrel 75MG TAB PO SCH (15:04)
--- NOTE | 2024-10-28 15:24 | NUR ---
Nutrition consult per TF recs Reviewed labs, notes, and medications. s/p cardiac stent two months ago, hemorrhoidal bleeding POA, recently quit smoking, on N.C, HH, IV fluid, diuretics, elevated bun 24, elevated cr 1.4, hyperglycemia 191, A1C 6.6 per chart review. Wt via standing scale, 100%PO intake, 10/26/24 last BM, no edema, well nourished, no wounds, does not have a PEG tube per nursing. No need for TF recs per nursing. Recommendations: -Provide HH + 75 gm cho -Monitor PO intake -Encourage PO intake as able -Monitor BM -If no BM >3 days consider stool softener -Monitor electrolytes -Replenish electrolytes per protocol -Monitor wts -Reweigh as able -Order Vit D, vit b-12 labs to rule out deficiencies -Provide b-complex QD -Recommend Pt to follow up with PCP -Monitor goals of care RD to follow + available for consult per protocol Addendum: 10/28/24 at [address] Amended: Links added.
[2024-10-28 15:38] LABS: ABG BASE EXCESS 0.5 mmol/L (-2.0-3.0); ABG HCO3 24.9 mmol/L (21.0-28.0); ABG OXYGEN SATURATION 93.3 % (94.0-98.0); ABG PCO2 40 mmHg (35-48); ABG PH 7.418 (7.350-7.450); PO2, ARTERIAL BG 65.5 mmHg (83.0-108.0); VENT MODE, BG RA (ROOM AIR)
--- NOTE | 2024-10-28 15:41 | CONS ---
[facility] CONSULTATION NOTE Date Patient Seen: Oct 28, 2024 Time of Visit: 15:41 Supervising Physician: Ankit Maldonado MD Reason for Consultation: Pneumonia Primary Care Physician: Tara Cortés MD Outpatient Specialists: Inpatient Consults: DREA Wiley PROBLEM LIST: Acute hypoxemic respiratory failure, POA Suspected Acute on Chronic Diastolic Heart Failure POA Acute anemia from blood loss, fecal stool positive POA CAD s/p recent Stent Uncontrolled Hypertension FANNY not POA History of severe bleeding hemorrhoids July 2024 Former smoker Suspected COPD undiagnosed Suspected Undiagnosed and untreated sleep apnea (STOP BANG Score of 5 High risk for moderate to severe MARITZA) and serum CO2 on admission 27 HPI: This is a 54 year old male with a pertinent history for hypertension and CAD his recent stenton asa and plavix, who presented to the emergency department for evaluation of cough for the past month and evaluation of hypertension, and chest pain. In the emergency department his blood pressure was in the 200 systolic. He was admitted by the [facility] team for hypoxemic respiratory failure, anemia and suspected CHF. He was started on doxycycline and Rocephin IV, Lasix 40 mg q.12 hours IV, Atrovent neb treatments, he had an elevated D-dimer so CTA was ordered and resulted negative for pulmonary embolism, 2D echo was done and diastolic function appeared normal and EF of 55-60%. We were consulted for shortness of breaths and suspected pneumonia. On assessment of patient he was awake alert and oriented x3 in no apparent distress. He is hemodynamically stable heart rate in the 80s respiratory rate of 20 saturating 98% on room air and afebrile. Patient reports he is a former smoker for many years and quit a month ago after his cardiac stent. He also reports he has snores and feels tired during the day. He does have uncontrolled hypertension that he requires medications for. CO2 was in the high 20s suspecting MARITZA undiagnosed and untreated. Otherwise patient appears stable. On laboratory today WBCs are 7.7 H&H is 8.6/29.6 with a low MCV and low MCH consistent with microcytic hypochromic anemia likely from blood loss due to stool occult blood positive. Chemistry today patient has a potassium of 3.5 BUN of 24 and creatinine 1.4 GFR of 60. He is currently on furosemide 40 mg IV q.12 hours we will hold due to FANNY. BNP is 148. Venous Doppler was done and shows no evidence of DVT. High sensitive troponins were negative x2. Instructed patient he will need to make appointment with [employer] [facility] to follow up on PFTs studies and sleep studies. Patient verbalized understanding. PAST MEDICAL HX: see above PAST SURGICAL HX: noncontributory SOCIAL HISTORY: No tobacco, ETOH, or illicit drug use Coded Allergies: No Known Allergies (Unverified Allergy, Unknown, 06/12/24) REVIEW OF SYSTEMS: General: No malaise or fever. Neurological: No fainting episodes or seizures. HEENT: No nasal congestion or nasal secretion. Respiratory: yes for cough, sob on exertion, and snoring Cardiac: No chest pain or palpitations. Gastrointestinal: No vomiting or diarrhea. Genitourinary: No dysuria hematuria. Skin: No rashes or lesions. Hematological: No bruises or bleeding. Musculoskeletal: No joint pains or arthralgias. Psychiatric: No depression or panic attacks. PHYSICAL EXAM: GENERAL: alert, weak, awake oriented x 3 HEENT: EOMI, Sclera non icteric, moist mucosa NECK: Supple, no JVD, trachea midline LUNGS: Diminished breath sounds bilaterally. No wheezes HEART: Regular rate and rhythm. Normal S1 and S2, without murmurs ABD: Abdomen soft, nontender. Bowel sounds present EXT: No clubbing cyanosis or edema NEURO: Alert and oriented to person, follows commands Vital Signs (last 8hr) Date Time Temp Pulse Resp B/P (MAP) Pulse Ox O2 Delivery O2 Flow Rate FiO2 10/28/24 11:31 72 16 N/A Room Air 21 10/28/24 11:29 72 16 10/28/24 11:00 98.1 88 20 141/79 99 Room Air 10/28/24 10:59 97 Room Air* 0 21 LABS: Hematology Labs: Test 10/28/24 13:08 10/28/24 04:11 Range/Units White Blood Count 7.5 # 4.8-10.8 K/uL Red Blood Count 3.73 L 4.50-6.20 MIL/uL Hemoglobin 8.0 L 14.0-18.0 g/dL Hematocrit 26.9 L 42-54 % Mean Corpuscular Volume 72.1 L 79-99 fL Mean Corpuscular Hemoglobin 21.4 L 27.0-33.0 pg Mean Corpuscular Hemoglobin Concent 29.7 L 32.0-36.0 g/dL Red Cell Distribution Width 19.9 H 11.0-15.5 % Platelet Count 414 H 130-400 K/uL Mean Platelet Volume 10.7 H 7.5-10.5 fL Segmented Neutrophils % 67 40-70 % Lymphocytes % (Manual) 28 22-44 % Monocytes % (Manual) 5 2-9 % Nucleated Red Blood Cells 0.0 0.0-0.19 % Differential Comment MANUAL DIFFERENTIAL White Cell Morphology Comment REACTIVE LYMPHS 1+ Platelet Morphology Comment INCREASED Red Blood Cell Morphology See comments Immature Granulocyte % (Auto) 0.4 0-1 % Neutrophils (%) (Auto) 74.0 40.0-77.0 % Lymphocytes (%) (Auto) 17.4 L 21.0-51.0 % Monocytes (%) (Auto) 8.1 3.0-13.0 % Eosinophils (%) (Auto) 0.0 0.0-8.0 % Basophils (%) (Auto) 0.1 0.0-5.0 % Neutrophils # (Auto) 7.4 1.8-7.7 K/uL Lymphocytes # (Auto) 1.8 1.0-4.8 K/uL Monocytes # (Auto) 0.8 0.1-1.0 K/uL Eosinophils # (Auto) 0.00 0.00-0.70 K/uL Basophils # (Auto) 0.01 0.00-0.20 K/uL Absolute Immature Granulocyte (auto 0.04 0-1 K/uL Chemistry Labs: Test 10/28/24 13:08 10/28/24 11:27 10/28/24 04:11 10/27/24 06:25 Range/Units Iron Level 11 L 65-175 mcg/dL Total Iron Binding Capacity 405 250-450 mcg/dL Percent Iron Saturation 2.7 L 30-44 % Whole Blood Glucose 191 H 70-110 MG/DL Bedside Glucose Comment Notified Nurse Sodium Level 144 136-145 mmol/L Potassium Level 3.5 3.5-5.1 mmol/L Chloride Level 107 101-111 mmol/L Carbon Dioxide Level 31 21-32 mmol/L Blood Urea Nitrogen 24 H 7-18 mg/dL Creatinine 1.4 H 0.5-1.3 mg/dL Glomerular Filtration Rate Calc 60 >90 mL/min Random Glucose 138 H 70-105 mg/dL Total Calcium 9.1 8.5-10.1 mg/dL Phosphorus Level 4.6 2.5-4.9 mg/dL Magnesium Level 2.00 1.80-2.40 mg/dL B-Type Natriuretic Peptide 148 H 0-100 pg/mL Hemoglobin A1c 6.6 H 4.0-6.0 % Estimated Average Glucose (eAG) 143 H 70-126 mg/dL Total Bilirubin 0.2 0.2-1.0 mg/dL Aspartate Amino Transf (AST/SGOT) 21 10-37 U/L Alanine Aminotransferase (ALT/SGPT) 33 12-78 U/L Alkaline Phosphatase 76 50-136 U/L Troponin I High Sensitivity 48 4-75 ng/L Total Protein 7.8 6.0-8.3 g/dL Albumin 3.7 3.5-5.0 g/dL Thyroid Stimulating Hormone (TSH) 1.19 0.36-3.74 uIU/mL Test 10/27/24 00:21 10/26/24 23:59 Range/Units Troponin I < 0.05 0.00-0.05 ng/mL Total Creatine Kinase 207 21-232 U/L Coagulation Labs: Test 10/27/24 06:25 Range/Units D-Dimer Quantitative (PE/DVT) 630 *H 0-500 ng/mL DIAGNOSTICS / RADIOLOGY RESULTS: [ ] IMAGING REPORT Signed PATIENT: DONNIE SAWYER MR#: [id number] : 1970 SEX: M AGE: 54 LOCATION: [facility] ORDER 0813 STATUS: ADM IN REPORT#: [id number] SERVICE 0811 REASON: SOB, elevated DDIMER ORDERING PHYSICIAN: CASEY SHAFFER PROCEDURE: CHES PE - CT CHEST PE PROTOCOL WWO CONT CT angiogram chest CLINICAL INDICATION: SOB, elevated DDIMER COMPARISON: None. CT Dose Index (CTDI): 113.50 mGy Dose Length Product (DLP): 1408.10 total mGy PROTOCOL: Contrast: 100 cc of Isovue-370, injected IV, no complications Examination is done at 2.5 millimeter volumetric acquisition after contrast administration. Photography is done at 5 millimeter thick intervals for the thorax. FINDINGS: There is no evidence of pulmonary embolism. The airway is intact. The trachea and major bronchi are unremarkable. No pulmonary infiltrates or mass lesions are seen. No pleural effusions are identified. The exam of the jaylin and mediastinum is unremarkable. No evidence of hilar enlargement is seen. The aorta shows no aneurysmal dilatation or significant atheromatous calcification. There is no thoracic aortic dissection. No significant brachiocephalic vascular abnormalities are seen. The heart is unremarkable. It is not enlarged. No significant coronary arterial calcifications are seen. There is no pericardial effusion. The rib cage appears unremarkable. The soft tissues of the chest wall are unremarkable. The dorsal spine shows no significant abnormalities. Limited evaluation of the upper abdomen demonstrates no gross abnormalities. IMPRESSION: No evidence of pulmonary embolism. This study was performed using dose reduction techniques to include automated exposure control and/or adjustment of the mA and/or kV according to patient size. DICTATED BY: SKYE MONTOYA MD DATE: 10/27/24942 ELECTRONICALLY SIGNED BY: SKYE MONTOYA MD DATE: 10/27/24945 Signed PATIENT: DONNIE SAWYER MR#: [id number] : 1970 SEX: M AGE: 54 [facility] STATUS: ADM IN REPORT#: [id number] SERVICE 45 REASON: CHEST PAIN ORDERING PHYSICIAN: JC REYNA MD PROCEDURE: CXR1VW - CHEST 1VW Exam Type: CHEST 1VW Clinical Information: CHEST PAIN Comparison: None Findings: The lungs are clear of infiltrates. The heart is normal in size. The bony and soft tissue structures of the chest are unremarkable. Impression: Clear lungs. DICTATED BY: SKYE MONTOYA MD DATE: 10/27/24824 ELECTRONICALLY SIGNED BY: SKYE MONTOYA MD DATE: 10/27/24827 Signed PATIENT: DONNIE SAWYER MR#: [id number] : 1970 SEX: M AGE: 54 LOCATION: 2D ORDER STATUS: ADM IN REPORT#: [id number] SERVICE 0546 REASON: dyspnea, recent cardiac stent ORDERING PHYSICIAN: CASEY SHAFFER PROCEDURE: ECHO CMP - ECHO 2-D COMPLETE APPROVED REPORT EXAM: Two-dimensional and M-mode echocardiogram with Doppler and color Doppler. INDICATION ICD: Dyspnea, recent cardiac stents 2D Dimensions RVDd 3.6 cm LVEF(%) 61.8 (>50%) LVED Vol(simp.) 125.0 mL IVSd 1.1 (0.7-1.1cm) FS(%) 33 % LVES Vol(simp.) 40.2 mL LVDd 5.1 (3.8-5.6cm) LA (2D) 5.1 (1.6-4.0cm) LVEF(%, simp.) 68 % PWd 1.1 (0.7-1.1cm) Ao Root(2D) 3.0 (2.0-3.7cm) LA ESV INDEX (4CH) 43.30 mL/m2 IVSs 1.2 cm LVOT diam 2.2 (1.8-2.4cm) LA ESV INDEX (2CH) 36.40 mL/m2 LVDs 3.4 (2.5-4.0cm) LA ESV INDEX (BP) 41.30 mL/m2 PWs 1.3 cm Deformation Strain Apical 4 25.0 % Apical 2 21.0 % Apical 3 23.0 % Global Strain 23.0 % M-Mode Dimensions EPSS 0.9 cm LA (MM) 5.1 (1.6-4.0cm) Ao Root(MM) 2.7 (2.0-3.7cm) Aortic Valve AoV VTI 0.4 m Ao Mean GR 8.0 mmHg LVOT VTI 0.24 m SELENA (VMAX) 2.4 cm2 SELENA (VTI) 2.4 cm2 Mitral Valve MV E Vmax 73.2 cm/s DECEL Time 225 ms MV A Vmax 48.0 cm/s P 1/2 T 62 ms E/A ratio 1.5 MVA (PHT) 3.6 cm2 MR Max PG 60 mmHg TDI E/E' Medial 9.9 E/E' Lateral 8.0 Medial E' Peak V 7.40 cm/s Lateral E' Peak V 9.10 cm/s Pulmonary Valve PV Vmax 1.3 m/s PV Peak GR 6.9 mmHg Left Ventricle The left ventricle is normal size. GLS -23.0%. There is normal left ventricular wall thickness. The LVEF is 55-60%. The left ventricular diastolic function is normal. Right Ventricle The right ventricle is normal size. The right ventricular systolic function is normal. Atria The left atrium is mildly dilated. The right atrium is mildly dilated. Aortic Valve The aortic valve is normal in structure. No aortic regurgitation is present. There is no aortic valvular stenosis. Mitral Valve The mitral valve is normal in structure. There is trace of mitral valve regurgitation noted. There is no mitral valve stenosis. Tricuspid Valve The tricuspid valve is normal in structure. There is trace of tricuspid valve regurgitation noted. Pulmonic Valve The pulmonary valve is normal in structure. There is no pulmonic valvular regurgitation. Great Vessels The aortic root is normal in size. The IVC is normal in size and collapses >50% with inspiration. Pericardium There is no pericardial effusion. Other Information Quality : Adequate Conclusion The left ventricle is normal size. The LVEF is 55-60%. The left ventricular diastolic function is normal. The right ventricle is normal size. The right ventricular systolic function is normal. The left atrium is mildly dilated. The right atrium is mildly dilated. No valvular pathology. No pericardial effusion. DICTATED BY: SANJIV CHÁVEZ MD DATE: 10/27/24 1221 ELECTRONICALLY SIGNED BY: SANJIV CHÁVEZ MD DATE: 10/27/24 191 IMAGING REPORT Signed PATIENT: DONNIE SAWYER MR#: [id number] : 1970 SEX: M AGE: 54 LOCATION: [facility] ORDER 0813 [facility] REPORT#: [id number] SERVICE 0811 REASON: SOB, Elevated DDIMER, r/o DVT ORDERING PHYSICIAN: CASEY SHAFFER PROCEDURE: VENOUS MISSY - US VENOUS DOPPLER BILATERAL US VENOUS DOPPLER BILATERAL HISTORY: Shortness of breath COMPARISON: None TECHNIQUE: Bilateral lower extremity venous Doppler ultrasound study was performed. FINDINGS: The common femoral, femoral, popliteal, and posterior tibial veins are visualized. Normal flow with augmentation and compressibilities are demonstrated. The greater saphenous veins are also seen and grossly patent. IMPRESSION: 1. No evidence of deep venous thrombosis is seen. DICTATED BY: AUDI PADILLA MD DATE: 10/27/241655 ELECTRONICALLY SIGNED BY: AUDI PADILLA MD DATE: 10/27/241657 PLAN no need for systemic steroids due to at RA at this time. Hold lasix due to fanny Continue IV abx coverage for CAP respiratory culture Given exposure of smoking for many years, patient likely has a developed COPD with exacerbation. Patient to follow up as outpatient at pulmonary clinic in tw o weeks for PFTs, we will continue with nebulizer treatments with atrovent, and Pulmicort. Singulair 10 mg daily Follow respiratory cultures Maintain O2 sats above 88% smoking cessation Influenza a and B negative, COVID-19 negative, -Arrange outpatient pulmonology referral for sleep study, PFT and follow-up management upon discharge CPAP at [facility] We will follow along with you. NEURO: Minimize central acting medications as possible. Maintain fall precautions, adequate lighting during the day PULMONARY: Supplemental 02 as needed. Maintain aspiration precautions at all times CARDIOVASCULAR: Follow hemodynamics. Vital signs per facility protocol GI & NUTRITION: Continue with nutritional support. Continue stool softeners and laxatives as needed. KIDNEYS & ELECTROLYTES: Strict monitoring of intake, output and overall fluid balance. Avoid nephrotoxic medications to the extent possible. Medications to be dosed according to renal function. Monitor electrolytes and replace as needed ENDOCRINE: Maintain blood glucose between 100-180 at all times. Hypoglycemia protocol in place INFECTIOUS DISEASE: Trend temperature, WBC and procalcitonin level Follow cultures, deescalate antibiotics as soon as possible. Panculture if new onset fever ONCOLOGY/HEMATOLOGY/COAGULATION: Monitor for s/s of bleeding Monitor hemoglobin, coagulation studies as needed SKIN: Pressure ulcer prevention per facility protocol Specialty mattress ORTHO/REHAB: Continue PT/OT Prophylaxis: Continue GI and DVT prophylaxis Code Status: Full Resuscitation Disposition: per primary team Other: Total patient care time exceeds 35 minutes excluding all procedures. AZAEL MOHAMUD Oct 28, 2024 15:41
--- NOTE | 2024-10-28 15:55 | PN ---
[facility] PROGRESS NOTE Date of Service: Oct 28, 2024 Time of Service: 15:[address] Lucia SUBJECTIVE: [10/27/24 54 year old male with significant h/o CHF, CAD with stent placement. He presented to the ED with c/o SOB and Chest pain. Apparently he woke up early this morning due to chest pain. He also has h/o of chronic smoking for many years recently quit. Admitted for CHF exacerbation and acute respiratory failure requiring oxygen supplementation via nasal canula. He was started with IV antbx with doxy and rocephin. 10/28/24 patient was seen by nurse practitioner physician during rounding in room 227 comfortably lying in the bed. Family members at the bedside. Patient's stool was positive for occult we consulted GI for further evaluation. Per patient in July he had done colonoscopy and multiple hemorrhoids were found which were bleeding. Today hemoglobin is 7.2 in a.m.. 2D echo 55 to 60% EF normal function. Patient's potassium is 3.5. Patient will receive [address] chest negative for PE. Chest x-ray negative. Venous Doppler negative for DVT. We also consulted senior ui web developer for shortness of breaths. Pending further recommendations. We will continue to monitor patient in the meantime. A.m. labs ] REVIEW OF SYSTEMS 12-point ROS reviewed with patient. All pertinent positives mentioned above. Otherwise negative, noncontributory, or non-pertinent. PHYSICAL EXAM GENERAL APPEARANCE: The patient is awake, alert, and oriented, in no acute cardiopulmonary distress. NEUROLOGICAL: Cranial nerves II-XII grossly intact. Motor is 5/5 in bilateral upper and lower extremities proximal to distal. No sensory deficits. HEENT: Face is symmetric. Pupils are equal and reactive. Extraocular movements are intact. NECK: Supple. No JVD. No thyromegaly. No submental, submandibular, pre- /postauricular, occipital or supraclavicular lymphadenopathy. CHEST: Normal chest expansion. No Telemetry. LUNGS: Absence of any rales, rhonchi or any wheezing. CARDIOVASCULAR: Regular. S1 and S2 normal. No appreciable rubs, murmurs or gallops. ABDOMEN: Soft, nontender, and nondistended. There is no rebound, voluntary guarding, or rigidity. : Deferred. No Chan. EXTREMITIES: Non-edematous and not cyanotic. No clubbing. Good capillary refill. SKIN: No skin breakdown. Vital Signs (last 8hr) Date Time Temp Pulse Resp B/P (MAP) Pulse Ox O2 Delivery O2 Flow Rate FiO2 10/28/24 11:31 72 16 N/A Room Air 21 10/28/24 11:29 72 16 10/28/24 11:00 98.1 88 20 141/79 99 Room Air 10/28/24 10:59 97 Room Air* 0 21 LABS: Laboratory: Test 10/28/24 15:37 10/28/24 13:08 10/28/24 11:27 10/28/24 04:11 Range/Units Blood Gas Specimen Type Arterial Arterial Blood pH 7.418 7.350-7.450 Arterial Blood Partial Pressure CO2 40 35-48 mmHg Arterial Blood Partial Pressure O2 65.5 L 83.0-108.0 mmHg Arterial Blood HCO3 24.9 21.0-28.0 mmol/L Arterial Blood Oxygen Saturation 93.3 L 94.0-98.0 % Arterial Blood Base Excess 0.5 -2.0-3.0 mmol/L Blood Gas Temperature 37.0 35.5-37.0 CELSIUS Blood Gas Vent Mode RA ROOM AIR FiO2 21.0 % Blood Gas Specimen Comment LB,BARBARA White Blood Count 7.5 # 4.8-10.8 K/uL Red Blood Count 3.73 L 4.50-6.20 MIL/uL Hemoglobin 8.0 L 14.0-18.0 g/dL Hematocrit 26.9 L 42-54 % Mean Corpuscular Volume 72.1 L 79-99 fL Mean Corpuscular Hemoglobin 21.4 L 27.0-33.0 pg Mean Corpuscular Hemoglobin Concent 29.7 L 32.0-36.0 g/dL Red Cell Distribution Width 19.9 H 11.0-15.5 % Platelet Count 414 H 130-400 K/uL Mean Platelet Volume 10.7 H 7.5-10.5 fL Segmented Neutrophils % 67 40-70 % Lymphocytes % (Manual) 28 22-44 % Monocytes % (Manual) 5 2-9 % Nucleated Red Blood Cells 0.0 0.0-0.19 % Differential Comment MANUAL DIFFERENTIAL White Cell Morphology Comment REACTIVE LYMPHS 1+ Platelet Morphology Comment INCREASED Red Blood Cell Morphology See comments Iron Level 11 L 65-175 mcg/dL Total Iron Binding Capacity 405 250-450 mcg/dL Percent Iron Saturation 2.7 L 30-44 % Whole Blood Glucose 191 H 70-110 MG/DL Bedside Glucose Comment Notified Nurse Immature Granulocyte % (Auto) 0.4 0-1 % Neutrophils (%) (Auto) 74.0 40.0-77.0 % Lymphocytes (%) (Auto) 17.4 L 21.0-51.0 % Monocytes (%) (Auto) 8.1 3.0-13.0 % Eosinophils (%) (Auto) 0.0 0.0-8.0 % Basophils (%) (Auto) 0.1 0.0-5.0 % Neutrophils # (Auto) 7.4 1.8-7.7 K/uL Lymphocytes # (Auto) 1.8 1.0-4.8 K/uL Monocytes # (Auto) 0.8 0.1-1.0 K/uL Eosinophils # (Auto) 0.00 0.00-0.70 K/uL Basophils # (Auto) 0.01 0.00-0.20 K/uL Absolute Immature Granulocyte (auto 0.04 0-1 K/uL Sodium Level 144 136-145 mmol/L Potassium Level 3.5 3.5-5.1 mmol/L Chloride Level 107 101-111 mmol/L Carbon Dioxide Level 31 21-32 mmol/L Blood Urea Nitrogen 24 H 7-18 mg/dL Creatinine 1.4 H 0.5-1.3 mg/dL Glomerular Filtration Rate Calc 60 >90 mL/min Random Glucose 138 H 70-105 mg/dL Total Calcium 9.1 8.5-10.1 mg/dL Phosphorus Level 4.6 2.5-4.9 mg/dL Magnesium Level 2.00 1.80-2.40 mg/dL B-Type Natriuretic Peptide 148 H 0-100 pg/mL Test 10/27/24 22:08 10/27/24 06:25 10/27/24 00:41 10/27/24 00:21 Range/Units Stool Occult Blood POSITIVE H NEGATIVE D-Dimer Quantitative (PE/DVT) 630 *H 0-500 ng/mL Hemoglobin A1c 6.6 H 4.0-6.0 % Estimated Average Glucose (eAG) 143 H 70-126 mg/dL Total Bilirubin 0.2 0.2-1.0 mg/dL Aspartate Amino Transf (AST/SGOT) 21 10-37 U/L Alanine Aminotransferase (ALT/SGPT) 33 12-78 U/L Alkaline Phosphatase 76 50-136 U/L Troponin I High Sensitivity 48 4-75 ng/L Total Protein 7.8 6.0-8.3 g/dL Albumin 3.7 3.5-5.0 g/dL Thyroid Stimulating Hormone (TSH) 1.19 0.36-3.74 uIU/mL Urine Color COLORLESS YELLOW Urine Appearance CLEAR CLEAR Urine pH 6.0 5.0-8.0 Urine Specific [place] 1.008 1.001-1.031 Urine Protein NEGATIVE NEGATIVE mg/dL Urine Glucose (UA) NEGATIVE NEGATIVE mg/dL Urine Ketones NEGATIVE NEGATIVE mg/dL Urine Occult Blood NEGATIVE NEGATIVE Urine Nitrate NEGATIVE NEGATIVE Urine Bilirubin NEGATIVE NEGATIVE mg/dL Urine Urobilinogen 0.2 0.2-1.0 mg/dL Urine Leukocyte Esterase NEGATIVE NEGATIVE David/uL Troponin I < 0.05 0.00-0.05 ng/mL Test 10/26/24 23:59 Range/Units Total Creatine Kinase 207 21-232 U/L Current Medications Medications (Trade) Dose Ordered Sig/Chikis Route PRN Reason Start Time Stop Time Status Last Admin Dose Admin Acetaminophen (TYLenol 325MG TAB) 650 mg Q6H PRN PO FEVER/MILD PAIN LEVEL 1-3 10/27/24 06:00 11/26/24 05:59 Acetaminophen (TYLenol 650MG SUPPOSITORY) 650 mg Q6H PRN RC FEVER / MILD PAIN 1-3 IF NPO 10/27/24 06:00 11/26/24 05:59 Albuterol Sulfate (Proventil 0.083% 2.5mg/3ml) 2.5 mg [id number] IH 10/27/24 06:00 11/26/24 05:59 10/28/24 11:28 2.5 MG Aspirin (Aspirin 81mg Chew Tab) 81 mg DAILY PO 10/27/24 09:00 11/26/24 08:59 10/28/24 08:41 81 MG Atorvastatin Calcium (LIPItor 40MG) 40 mg HS PO 10/27/24 21:00 11/26/24 20:59 10/27/24 20:04 40 MG Ceftriaxone Sodium (ROCEphine 1G INJ) 1 gm DAILY10 IVP 10/27/24 10:00 10/28/24 14:31 DC 10/28/24 12:23 1 GM Ceftriaxone Sodium (ROCEphine 1G INJ) 2 gm DAILY10 IVP 10/29/24 10:00 11/08/24 09:59 Clopidogrel Bisulfate (plaVIX 75MG) 75 mg DAILY PO 10/28/24 15:00 11/27/24 14:59 10/28/24 15:04 75 MG Docusate Sodium (COLace 100MG CAP) 100 mg BID PRN PO c 10/27/24 06:00 11/26/24 05:59 Doxycycline Hyclate (Doxycycline 100mg+NS 250ml) 100 mg BID IV 10/27/24 09:00 11/06/24 08:59 10/28/24 08:41 100 MG Furosemide (LASix 40MG VIAL) 40 mg Q12H IV 10/27/24 06:00 11/26/24 05:59 10/28/24 06:06 40 MG Hydralazine HCl (APRESOLine 20MG INJ) 5 mg Q6H PRN IV ADMINISTER FOR SBP > 160 10/27/24 12:30 11/26/24 12:29 Insulin Human Regular (humuLIN R 100 UNIT/ML 3ML) INSULIN SLIDING SCAL... ACHS SQ 10/27/24 07:30 10/27/24 12:06 DC 10/27/24 09:17 6 UNIT Ipratropium [place] (AtrovENT UD) 0.5 mg [id number] IH 10/27/24 06:00 11/26/24 05:59 10/28/24 11:28 0.5 MG Lactulose (Constulose 20gm/ 30ml Udcup) 20 gm Q6H PRN PO CONSTIPATION 10/27/24 06:00 11/26/24 05:59 Montelukast Sodium (SinguLAIR) 10 mg DAILY PO 10/29/24 09:00 11/28/24 08:59 Ondansetron HCl (zoFRAN 4MG INJ) 4 mg Q6H PRN IVP NAUSEA/VOMITING 10/27/24 06:00 11/26/24 05:59 Potassium Chloride 100 ml @ 100 mls/hr AD PRN IV POTASSIUM PROTOCOL 10/28/24 06:00 11/27/24 05:59 Potassium Chloride (K-Dur/Klor-Con 20meq) 20 meq AD PRN PO POTASSIUM PROTOCOL 10/28/24 06:00 11/27/24 05:59 10/28/24 08:50 20 MEQ Potassium Chloride (KCl 10% Elixir 20meq/15ml) 20 meq AD PRN PO POTASSIUM PROTOCOL 10/28/24 06:00 11/27/24 05:59 10/28/24 06:06 20 MEQ Temazepam (restORIL 15 MG CAP) 15 mg HS PRN PO INSOMNIA/SLEEP 10/27/24 06:00 11/26/24 05:59 DIAGNOSTICS / RADIOLOGY: [ ] ASSESSMENT: Acute hypoxemic respiratory failure, POA Acute exacerbation of CHF, POA Acute blood loss, fecal stool positive POA Coronary artery disease s/p reason heart artery stents Uncontrolled Hypertension Acute kidney injury Electrolyte imbalance hyponatremia K 3.5 Severe anemia History of severe bleeding hemorrhoids July 2024 History of tobacco use PLAN: Admit to medical floor with telemetry monitoring. Monitor respiratory status closely. Continue oxygen supplementation to keep SpO2 equal to greater than 92%. Albuterol and Atrovent scheduled. Lasix 40 mg IV q.12. Start aspirin 81 mg p.o. daily. Atorvastatin 40 mg p.o. daily. Trend BNP. Obtain 2D echo. Fluid restrictions a 1200 mL in24 hours. Strict I&Os. Daily weight. Reconcile home medications once available. Education done on smoking cessation. Start antibiotic therapy: Doxycycline IV and Rocephin IV. CT PE protocol. Bilateral venous Doppler. P.r.n. medications for: Pain management, nausea, vomiting, constipation, fever, hypertension. Glucometer checks a.c. and HS with insulin regular sliding scale per protocol. Blood pressure checks every 4 hours and as needed. Reconcile home medications once available. Monitor renal and liver function. Monitor electrolytes and treat accordingly. A.m. labs: CBC, BMP, Mag, phos, TSH, A1c. ATTESTATION BY PHYSICIAN I have seen and examined the patient. I reviewed the documentation, medical decision making, and treatment plan as noted by the mid-level provider above. I agree with the findings and plan of care. ANGEL LUCIA MD, [employer]INEERING OFFICER Oct 28, 2024 15:55
[2024-10-28 16:02] LABS: RAPID GROUP A STREP negative (NEGATIVE)
[2024-10-28 16:10] LABS: COVID19 (SARS ANTIGEN RAPID) PRESUMPTIVE NEGATIVE (NEGATIVE); INFLUENZA TYPE A Negative For Type A (NEGATIVE); INFLUENZA TYPE B Negative For Type B (NEGATIVE)
[2024-10-28 16:23] LABS: ABG HCO3 20.2 mmol/L (21.0-28.0); ABG OXYGEN SATURATION 99.7 % (94.0-98.0); ABG PCO2 31 mmHg (35-48); ABG PH 7.429 (7.350-7.450); PO2, ARTERIAL BG 269.3 mmHg (83.0-108.0)
[2024-10-28 16:31] LABS: VENT MODE, BG NRB (ROOM AIR)
[2024-10-28] MEDS: PoTASSium chloRIDE 20MEQ ER 20 MEQ ERTAB PO ONE (18:26)
[2024-10-28] MEDS: SODIUM CHLORIDE 3% FOR INHALATION 4 ML/AMP VIAL.NEB IH ONE ×2 (18:55→23:38)
--- NOTE | 2024-10-28 20:01 | CONS ---
GASTROENTEROLOGY CONSULTATION NOTE Date of Consultation: Oct 28, 2024 Time of Consultation: 20:01 History of Present Illness: This is a 54-year-old male who is known to services with past medical history of hypertension who presented due to chest discomfort. Patient had cardiac stents placed in August for which she takes Plavix. We were consulted due to iron deficiency anemia. Hemoglobin today 7.2, MCV 71.8 with a platelet count of 374. He had a positive FOBT. No overt GI bleeding. Patient had colonoscopy May 2024 which revealed colon polyps, hemorrhoids, internal hemorrhoids and a rectal prolapse with intermittent oozing. He was referred to colorectal [facility] for this reason however has not yet had his appointment. EGD done 10/15/2024 revealing LA grade a esophagitis moderate inflammation characterized by erosions and erythema in the gastric body. Review of Systems: CONSTITUTIONAL: No malaise or change in sensation of wellbeing. ENMT: No rhinorrhea, otorrhea, sinus pain, ear ache. CARDIOVASCULAR: No angina, palpitations, orthopnea or paroxysmal dyspnea. RESPIRATORY: No SOB. GASTROINTESTINAL: No abdominal pain, nausea, vomiting, diarrhea, hematemesis, melena or change in the patient's habitual bowel movements consistency/number. GENITOURINARY: No dysuria, hematuria or change in bladder continence. MUSCULOSKELETAL: No new muscle pain or decrease in muscular strength. No new [place] int swelling, redness or tenderness. SKIN: No new rash. Past Medical History: Past Medical History: Anemia (Received 1 unit of PRBC in [place]), CAD, Hypertension, [place], Pneumonia, Other (Hemorrhoid) Surgical History: CARDIAC STENTS Family History: Negative Social History: Smoker Coded Allergies: No Known Allergies (Unverified Allergy, Unknown, 06/12/24) Coded Allergies: No Known Allergies (Unverified Allergy, Unknown, 06/12/24) Physical Exam: GEN: Awake, alert, oriented in person, time and place, and in no acute distress. HEENT: No sinus tenderness. Tympanic membranes were not examined. No rhinorrhea. Oral pharyngeal mucosa is pink, moist and within normal limits. Neck is supple with no cervical lymphadenopathy, thyromegaly or JVD. CHEST: Inspection, palpation and percussion of the chest were unremarkable. Lung auscultation revealed normal breath sounds bilaterally. CARDIAC: PMI is within normal limits. Heart sounds are regular. Normal S1, S2. No gallop or murmur. ABD: Soft, non-tender and not distended. No peritoneal signs on palpation. No organomegaly. Normal bowel sounds. EXT: No cyanosis or clubbing. No edema. SKIN: Intact. No rashes. JOINTS: No evidence of synovitis or acute arthritis. NEURO: Alert and oriented to name, place and person. Cranial nerve examination is unremarkable. No focal motor deficits. Normal speech. Gait is normal. Strength is normal. Vital Sign (Last 24 Hours) 10/28/24 10/28/24 10:59 19:56 Temp 98.8 Pulse 100 Resp 20 B/P (MAP) 126/81 Pulse Ox 98 O2 Flow Rate 0 Intake & Output (last 24hrs) 10/27/24 10/27/24 10/28/24 15:00 23:00 07:00 Intake Total 490.0 ml 240 ml Output Total 450 ml Balance 40.0 ml 240 ml Laboratory: [ ] Laboratory: Test 10/28/24 19:23 10/28/24 16:07 10/28/24 15:37 10/28/24 15:21 Range/Units Whole Blood Glucose 136 H 70-110 MG/DL Bedside Glucose Comment Notified Nurse Blood Gas Specimen Type Arterial Arterial Blood pH 7.418 7.350-7.450 Arterial Blood Partial Pressure CO2 40 35-48 mmHg Arterial Blood Partial Pressure O2 65.5 L 83.0-108.0 mmHg Arterial Blood HCO3 24.9 21.0-28.0 mmol/L Arterial Blood Oxygen Saturation 93.3 L 94.0-98.0 % Arterial Blood Base Excess 0.5 -2.0-3.0 mmol/L Blood Gas Temperature 37.0 35.5-37.0 CELSIUS Blood Gas Vent Mode RA ROOM AIR FiO2 21.0 % Blood Gas Specimen Comment LB,BARBARA Influenza Type A Antigen Negative For Type A NEGATIVE Influenza Type B Antigen Negative For Type B NEGATIVE SARS-CoV-2 Antigen (Rapid) PRESUMPTIVE NEGATIVE NEGATIVE Group A Streptococcus Rapid negative NEGATIVE Test 10/28/24 13:08 10/28/24 04:11 10/27/24 22:08 10/27/24 06:25 Range/Units White Blood Count 7.5 # 4.8-10.8 K/uL Red Blood Count 3.73 L 4.50-6.20 MIL/uL Hemoglobin 8.0 L 14.0-18.0 g/dL Hematocrit 26.9 L 42-54 % Mean Corpuscular Volume 72.1 L 79-99 fL Mean Corpuscular Hemoglobin 21.4 L 27.0-33.0 pg Mean Corpuscular Hemoglobin Concent 29.7 L 32.0-36.0 g/dL Red Cell Distribution Width 19.9 H 11.0-15.5 % Platelet Count 414 H 130-400 K/uL Mean Platelet Volume 10.7 H 7.5-10.5 fL Segmented Neutrophils % 67 40-70 % Lymphocytes % (Manual) 28 22-44 % Monocytes % (Manual) 5 2-9 % Nucleated Red Blood Cells 0.0 0.0-0.19 % Differential Comment MANUAL DIFFERENTIAL White Cell Morphology Comment REACTIVE LYMPHS 1+ Platelet Morphology Comment INCREASED Red Blood Cell Morphology See comments Iron Level 11 L 65-175 mcg/dL Total Iron Binding Capacity 405 250-450 mcg/dL Percent Iron Saturation 2.7 L 30-44 % Immature Granulocyte % (Auto) 0.4 0-1 % Neutrophils (%) (Auto) 74.0 40.0-77.0 % Lymphocytes (%) (Auto) 17.4 L 21.0-51.0 % Monocytes (%) (Auto) 8.1 3.0-13.0 % Eosinophils (%) (Auto) 0.0 0.0-8.0 % Basophils (%) (Auto) 0.1 0.0-5.0 % Neutrophils # (Auto) 7.4 1.8-7.7 K/uL Lymphocytes # (Auto) 1.8 1.0-4.8 K/uL Monocytes # (Auto) 0.8 0.1-1.0 K/uL Eosinophils # (Auto) 0.00 0.00-0.70 K/uL Basophils # (Auto) 0.01 0.00-0.20 K/uL Absolute Immature Granulocyte (auto 0.04 0-1 K/uL Sodium Level 144 136-145 mmol/L Potassium Level 3.5 3.5-5.1 mmol/L Chloride Level 107 101-111 mmol/L Carbon Dioxide Level 31 21-32 mmol/L Blood Urea Nitrogen 24 H 7-18 mg/dL Creatinine 1.4 H 0.5-1.3 mg/dL Glomerular Filtration Rate Calc 60 >90 mL/min Random Glucose 138 H 70-105 mg/dL Total Calcium 9.1 8.5-10.1 mg/dL Phosphorus Level 4.6 2.5-4.9 mg/dL Magnesium Level 2.00 1.80-2.40 mg/dL B-Type Natriuretic Peptide 148 H 0-100 pg/mL Vitamin B12 Level 2367 H 193-986 pg/mL Stool Occult Blood POSITIVE H NEGATIVE D-Dimer Quantitative (PE/DVT) 630 *H 0-500 ng/mL Hemoglobin A1c 6.6 H 4.0-6.0 % Estimated Average Glucose (eAG) 143 H 70-126 mg/dL Total Bilirubin 0.2 0.2-1.0 mg/dL Aspartate Amino Transf (AST/SGOT) 21 10-37 U/L Alanine Aminotransferase (ALT/SGPT) 33 12-78 U/L Alkaline Phosphatase 76 50-136 U/L Troponin I High Sensitivity 48 4-75 ng/L Total Protein 7.8 6.0-8.3 g/dL Albumin 3.7 3.5-5.0 g/dL Thyroid Stimulating Hormone (TSH) 1.19 0.36-3.74 uIU/mL Test 10/27/24 04:15 10/27/24 00:41 10/27/24 00:21 10/26/24 23:59 Range/Units Blood Gas Flow-by 15.00 0.00-15.00 L/min Urine Color COLORLESS YELLOW Urine Appearance CLEAR CLEAR Urine pH 6.0 5.0-8.0 Urine Specific [place] 1.008 1.001-1.031 Urine Protein NEGATIVE NEGATIVE mg/dL Urine Glucose (UA) NEGATIVE NEGATIVE mg/dL Urine Ketones NEGATIVE NEGATIVE mg/dL Urine Occult Blood NEGATIVE NEGATIVE Urine Nitrate NEGATIVE NEGATIVE Urine Bilirubin NEGATIVE NEGATIVE mg/dL Urine Urobilinogen 0.2 0.2-1.0 mg/dL Urine Leukocyte Esterase NEGATIVE NEGATIVE David/uL Troponin I < 0.05 0.00-0.05 ng/mL Total Creatine Kinase 207 21-232 U/L Current Medications Medications (Trade) Dose Ordered Sig/Chikis Route PRN Reason Start Time Stop Time Status Last Admin Dose Admin Acetaminophen (TYLenol 325MG TAB) 650 mg Q6H PRN PO FEVER/MILD PAIN LEVEL 1-3 10/27/24 06:00 11/26/24 05:59 Acetaminophen (TYLenol 650MG SUPPOSITORY) 650 mg Q6H PRN RC FEVER / MILD PAIN 1-3 IF NPO 10/27/24 06:00 11/26/24 05:59 Albuterol Sulfate (Proventil 0.083% 2.5mg/3ml) 2.5 mg [id number] IH 10/27/24 06:00 11/26/24 05:59 10/28/24 18:54 2.5 MG Aspirin (Aspirin 81mg Chew Tab) 81 mg DAILY PO 10/27/24 09:00 11/26/24 08:59 10/28/24 08:41 81 MG Atorvastatin Calcium (LIPItor 40MG) 40 mg HS PO 10/27/24 21:00 11/26/24 20:59 10/27/24 20:04 40 MG Ceftriaxone Sodium (ROCEphine 1G INJ) 1 gm DAILY10 IVP 10/27/24 10:00 10/28/24 14:31 DC 10/28/24 12:23 1 GM Ceftriaxone Sodium (ROCEphine 1G INJ) 2 gm DAILY10 IVP 10/29/24 10:00 11/08/24 09:59 Clopidogrel Bisulfate (plaVIX 75MG) 75 mg DAILY PO 10/28/24 15:00 11/27/24 14:59 10/28/24 15:04 75 MG Docusate Sodium (COLace 100MG CAP) 100 mg BID PRN PO c 10/27/24 06:00 11/26/24 05:59 Doxycycline Hyclate (Doxycycline 100mg+NS 250ml) 100 mg BID IV 10/27/24 09:00 11/06/24 08:59 10/28/24 08:41 100 MG Ferrous Sulfate (Ferrous Sulfate) 325 mg DAILY PO 10/29/24 09:00 11/28/24 08:59 Furosemide (LASix 40MG VIAL) 40 mg Q12H IV 10/27/24 06:00 11/26/24 05:59 10/28/24 18:26 40 MG Hydralazine HCl (APRESOLine 20MG INJ) 5 mg Q6H PRN IV ADMINISTER FOR SBP > 160 10/27/24 12:30 11/26/24 12:29 Insulin Human Regular (humuLIN R 100 UNIT/ML 3ML) INSULIN SLIDING SCAL... ACHS SQ 10/27/24 07:30 10/27/24 12:06 DC 10/27/24 09:17 6 UNIT Ipratropium [place] (AtrovENT UD) 0.5 mg [id number] IH 10/27/24 06:00 11/26/24 05:59 10/28/24 18:55 0.5 MG Lactulose (Constulose 20gm/ 30ml Udcup) 20 gm Q6H PRN PO CONSTIPATION 10/27/24 06:00 11/26/24 05:59 Montelukast Sodium (SinguLAIR) 10 mg DAILY PO 10/29/24 09:00 11/28/24 08:59 Ondansetron HCl (zoFRAN 4MG INJ) 4 mg Q6H PRN IVP NAUSEA/VOMITING 10/27/24 06:00 11/26/24 05:59 Potassium Chloride 100 ml @ 100 mls/hr AD PRN IV POTASSIUM PROTOCOL 10/28/24 06:00 11/27/24 05:59 Potassium Chloride (K-Dur/Klor-Con 20meq) 20 meq AD PRN PO POTASSIUM PROTOCOL 10/28/24 06:00 11/27/24 05:59 10/28/24 08:50 20 MEQ Potassium Chloride (KCl 10% Elixir 20meq/15ml) 20 meq AD PRN PO POTASSIUM PROTOCOL 10/28/24 06:00 11/27/24 05:59 10/28/24 06:06 20 MEQ Temazepam (restORIL 15 MG CAP) 15 mg HS PRN PO INSOMNIA/SLEEP 10/27/24 06:00 11/26/24 05:59 Diagnostics / Radiology: [COPY/PASTE HERE IF NO REPORTS PLEASE DELETE SECTION] Assessment: Positive FOBT JAN Rectal prolapse with oozing Plan: No plan for repeat endoscopies Patient to f/u with colorectal surgery outpatient Monitor hgb and transfuse as needed JARED BRENNER Oct 28, 2024 20:01
[2024-10-28 20:49] LABS: HEMATOCRIT 29.6 % (42-54); MEAN CORPUSCULAR HGB CONC 29.1 g/dL (32.0-36.0); MEAN CORPUSCULAR VOLUME 72.4 fL (79-99); RED BLOOD CELL COUNT(AUTO) 4.09 MIL/uL (4.50-6.20); RED CELL DISTRIBUTION WIDTH 19.9 % (11.0-15.5); WHITE BLOOD COUNT (AUTO) 7.7 K/uL (4.8-10.8)
[2024-10-29 03:54] LABS: BASOPHILS # (AUTO) 0.04 K/uL (0.00-0.20); BASOPHILS % (AUTO) 0.6 % (0.0-5.0); EOSINOPHILS # (AUTO) 0.17 K/uL (0.00-0.70); EOSINOPHILS % (AUTO) 2.4 % (0.0-8.0); HEMATOCRIT 28.6 % (42-54); IMMATURE GRANULOCYTE ABSOLUTE 0.02 K/uL (0-1); LYMPHOCYTES # (AUTO) 2.8 K/uL (1.0-4.8); MEAN CORPUSCULAR HEMOGLOBIN 20.8 pg (27.0-33.0); MEAN CORPUSCULAR HGB CONC 28.7 g/dL (32.0-36.0); MEAN CORPUSCULAR VOLUME 72.4 fL (79-99); MONOCYTES # (AUTO) 0.6 K/uL (0.1-1.0); MONOCYTES % (AUTO) 7.9 % (3.0-13.0); NEUTROPHILS # (AUTO) 3.5 K/uL (1.8-7.7); NEUTROPHILS % (AUTO) 49.8 % (40.0-77.0); PLATELET COUNT (AUTO) 411 K/uL (130-400); RED BLOOD CELL COUNT(AUTO) 3.95 MIL/uL (4.50-6.20); RED CELL DISTRIBUTION WIDTH 20.2 % (11.0-15.5); WHITE BLOOD COUNT (AUTO) 7.1 K/uL (4.8-10.8)
[2024-10-29 04:00] VITALS: BP 129/75; PULSE 87; RESP 21; TEMP 98
[2024-10-29 04:29] LABS: ALBUMIN 3.5 g/dL (3.5-5.0); BILIRUBIN,TOTAL 0.3 mg/dL (0.2-1.0); CREATININE 1.3 mg/dL (0.5-1.3); MAGNESIUM 1.8 mg/dL (1.80-2.40); POTASSIUM 4.3 mmol/L (3.5-5.1); TOTAL PROTEIN, SERUM 7.5 g/dL (6.0-8.3)
--- NOTE | 2024-10-29 05:06 | NUR ---
CALL PLACED TO HOSPITALIST TO REPORT MG OF 1.8. PER ANSWERING SERVICE, TAHMINA STRIKE OPERATIONS OFFICER. PENDING CALL BACK.
--- NOTE | 2024-10-29 05:51 | NUR ---
RECEIVED CALL BACK FROM CHRISTIAN SMART NP. ORDERED MAGNESIUM 2GM IV PROTOCOL
[2024-10-29] MEDS: MAGNESIUM 2GM PREMIX 50ML 50 ML IV PRN (06:08)
[2024-10-29] MEDS: BUDESONIDE 0.5 MG/2 ML INH IH SCH (06:33)
[2024-10-29] MEDS: SODIUM CHLORIDE 3% FOR INHALATION 4 ML/AMP VIAL.NEB IH ONE (06:34)
[2024-10-29 06:35] VITALS: PULSE 91; RESP 16; RESP 18; O2SAT 100
[2024-10-29 07:35] VITALS: BP 134/63; PULSE 86; RESP 20; TEMP 97.8
[2024-10-29 08:00] VITALS: O2SAT 98
[2024-10-29] MEDS: FERROUS SULFATE 325 MG TABLET.DR PO SCH (08:38)
[2024-10-29] MEDS: monteLUKAST sodIUM 10 MG TAB PO SCH (08:39)
[2024-10-29 09:01] LABS: MEAN CORPUSCULAR HEMOGLOBIN 21.2 pg (27.0-33.0); MEAN CORPUSCULAR HGB CONC 29.3 g/dL (32.0-36.0); MEAN CORPUSCULAR VOLUME 72.1 fL (79-99); RED BLOOD CELL COUNT(AUTO) 4.16 MIL/uL (4.50-6.20); RED CELL DISTRIBUTION WIDTH 20.3 % (11.0-15.5); WHITE BLOOD COUNT (AUTO) 6.3 K/uL (4.8-10.8)
--- NOTE | 2024-10-29 09:47 | HMCIMG ---
Exam Type: CHEST 1VW Clinical Information: hypoxemic resp failure Comparison: None Findings: The lungs are clear of infiltrates. The heart is normal in size. The bony and soft tissue structures of the chest are unremarkable. Impression: Clear lungs.
[2024-10-29] MEDS: cefTRIAXone 1G VIAL IVP SCH (11:15)
[2024-10-29 11:33] VITALS: BP 141/62; PULSE 87; RESP 20; TEMP 98.6
--- NOTE | 2024-10-29 11:34 | PN ---
GASTROENTEROLOGY PROGRESS NOTE Date of Visit: Oct 29, 2024 Time of Visit: 11:34 Events / Notes: [ ] Review of Systems: CONSTITUTIONAL: No malaise or change in sensation of wellbeing. ENMT: No rhinorrhea, otorrhea, sinus pain, ear ache. CARDIOVASCULAR: No angina, palpitations, orthopnea or paroxysmal dyspnea. RESPIRATORY: No SOB. GASTROINTESTINAL: No abdominal pain, nausea, vomiting, diarrhea, hematemesis, melena or change in the patient's habitual bowel movements consistency/number. GENITOURINARY: No dysuria, hematuria or change in bladder continence. MUSCULOSKELETAL: No new muscle pain or decrease in muscular strength. No new joint swelling, redness or tenderness. SKIN: No new rash. Physical Exam: GEN: Awake, alert, oriented in person, time and place, and in no acute distress. HEENT: No sinus tenderness. Tympanic membranes were not examined. No rhinorrhea. Oral pharyngeal mucosa is pink, moist and within normal limits. Neck is supple with no cervical lymphadenopathy, thyromegaly or JVD. CHEST: Inspection, palpation and percussion of the chest were unremarkable. Lung auscultation revealed normal breath sounds bilaterally. CARDIAC: PMI is within normal limits. Heart sounds are regular. Normal S1, S2. No gallop or murmur. ABD: Soft, non-tender and not distended. No peritoneal signs on palpation. No organomegaly. Normal bowel sounds. EXT: No cyanosis or clubbing. No edema. SKIN: Intact. No rashes. JOINTS: No evidence of synovitis or acute arthritis. NEURO: Alert and oriented to name, place and person. Cranial nerve examination is unremarkable. No focal motor deficits. Normal speech. Gait is normal. Strength is normal. Vital Signs (last 8hr) Date Time Temp Pulse Resp B/P (MAP) Pulse Ox O2 Delivery O2 Flow Rate FiO2 10/29/24 11:33 98.6 87 20 141/62 98 Room Air 10/29/24 08:00 98 Room Air* 0 21 10/29/24 07:35 97.9 86 20 134/63 98 Room Air 10/29/24 06:35 91 18 N/A Room Air 21 10/29/24 06:35 91 16 10/29/24 04:00 98.1 87 21 129/75 99 Room Air Laboratory: [ ] Laboratory: Test 10/29/24 11:12 2/4/25 08:46 10/29/24 03:39 10/28/24 16:07 Range/Units Whole Blood Glucose 149 H 70-110 MG/DL White Blood Count 6.3 4.8-10.8 K/uL Red Blood Count 4.16 L 4.50-6.20 MIL/uL Hemoglobin 8.8 L 14.0-18.0 g/dL Hematocrit 30.0 L 42-54 % Mean Corpuscular Volume 72.1 L 79-99 fL Mean Corpuscular Hemoglobin 21.2 L 27.0-33.0 pg Mean Corpuscular Hemoglobin Concent 29.3 L 32.0-36.0 g/dL Red Cell Distribution Width 20.3 H 11.0-15.5 % Platelet Count 440 H 130-400 K/uL Mean Platelet Volume 10.5 7.5-10.5 fL Nucleated Red Blood Cells 0.0 0.0-0.19 % Immature Granulocyte % (Auto) 0.3 0-1 % Neutrophils (%) (Auto) 49.8 40.0-77.0 % Lymphocytes (%) (Auto) 39.0 21.0-51.0 % Monocytes (%) (Auto) 7.9 3.0-13.0 % Eosinophils (%) (Auto) 2.4 0.0-8.0 % Basophils (%) (Auto) 0.6 0.0-5.0 % Neutrophils # (Auto) 3.5 1.8-7.7 K/uL Lymphocytes # (Auto) 2.8 1.0-4.8 K/uL Monocytes # (Auto) 0.6 0.1-1.0 K/uL Eosinophils # (Auto) 0.17 0.00-0.70 K/uL Basophils # (Auto) 0.04 0.00-0.20 K/uL Absolute Immature Granulocyte (auto 0.02 0-1 K/uL Sodium Level 143 136-145 mmol/L Potassium Level 4.3 3.5-5.1 mmol/L Chloride Level 105 101-111 mmol/L Carbon Dioxide Level 30 21-32 mmol/L Blood Urea Nitrogen 26 H 7-18 mg/dL Creatinine 1.3 0.5-1.3 mg/dL Glomerular Filtration Rate Calc 66 >90 mL/min Random Glucose 109 H 70-105 mg/dL Total Calcium 9.4 8.5-10.1 mg/dL Magnesium Level 1.80 1.80-2.40 mg/dL Iron Level 13 L 65-175 mcg/dL Ferritin 7 L 30-400 ng/mL Total Bilirubin 0.3 0.2-1.0 mg/dL Aspartate Amino Transf (AST/SGOT) 22 10-37 U/L Alanine Aminotransferase (ALT/SGPT) 40 12-78 U/L Alkaline Phosphatase 63 50-136 U/L Total Protein 7.5 6.0-8.3 g/dL Albumin 3.5 3.5-5.0 g/dL Procalcitonin < 0.05 L 0.05-0.5 ng/mL Bedside Glucose Comment Notified Nurse Test 10/28/24 15:37 10/28/24 15:21 10/28/24 13:08 10/28/24 04:11 Range/Units Blood Gas Specimen Type Arterial Arterial Blood pH 7.418 7.350-7.450 Arterial Blood Partial Pressure CO2 40 35-48 mmHg Arterial Blood Partial Pressure O2 65.5 L 83.0-108.0 mmHg Arterial Blood HCO3 24.9 21.0-28.0 mmol/L Arterial Blood Oxygen Saturation 93.3 L 94.0-98.0 % Arterial Blood Base Excess 0.5 -2.0-3.0 mmol/L Blood Gas Temperature 37.0 35.5-37.0 CELSIUS Blood Gas Vent Mode RA ROOM AIR FiO2 21.0 % Blood Gas Specimen Comment LB,BARBARA Influenza Type A Antigen Negative For Type A NEGATIVE Influenza Type B Antigen Negative For Type B NEGATIVE SARS-CoV-2 Antigen (Rapid) PRESUMPTIVE NEGATIVE NEGATIVE Group A Streptococcus Rapid negative NEGATIVE Segmented Neutrophils % 67 40-70 % Lymphocytes % (Manual) 28 22-44 % Monocytes % (Manual) 5 2-9 % Differential Comment MANUAL DIFFERENTIAL White Cell Morphology Comment REACTIVE LYMPHS 1+ Platelet Morphology Comment INCREASED Red Blood Cell Morphology See comments Total Iron Binding Capacity 405 250-450 mcg/dL Percent Iron Saturation 2.7 L 30-44 % Vitamin D 25-Hydroxy 24.2 30.0-100.0 ng/mL Phosphorus Level 4.6 2.5-4.9 mg/dL B-Type Natriuretic Peptide 148 H 0-100 pg/mL Vitamin B12 Level 2367 H 193-986 pg/mL Test 10/27/24 22:08 Range/Units Stool Occult Blood POSITIVE H NEGATIVE Current Medications Medications (Trade) Dose Ordered Sig/Chikis Route PRN Reason Start Time Stop Time Status Last Admin Dose Admin Acetaminophen (TYLenol 325MG TAB) 650 mg Q6H PRN PO FEVER/MILD PAIN LEVEL 1-3 10/27/24 06:00 11/26/24 05:59 Acetaminophen (TYLenol 650MG SUPPOSITORY) 650 mg Q6H PRN RC FEVER / MILD PAIN 1-3 IF NPO 10/27/24 06:00 11/26/24 05:59 Albuterol Sulfate (Proventil 0.083% 2.5mg/3ml) 2.5 mg [id number] IH 10/27/24 06:00 11/26/24 05:59 10/29/24 06:33 2.5 MG Aspirin (Aspirin 81mg Chew Tab) 81 mg DAILY PO 10/27/24 09:00 11/26/24 08:59 10/29/24 08:38 81 MG Atorvastatin Calcium (LIPItor 40MG) 40 mg HS PO 10/27/24 21:00 11/26/24 20:59 10/28/24 20:31 40 MG Budesonide (Pulmicort 0.5 Mg/2ml) 0.5 mg BIDRESP IH 10/29/24 06:00 11/28/24 05:59 10/29/24 06:33 0.5 MG Ceftriaxone Sodium (ROCEphine 1G INJ) 1 gm DAILY10 IVP 10/27/24 10:00 10/28/24 14:31 DC 10/28/24 12:23 1 GM Ceftriaxone Sodium (ROCEphine 1G INJ) 2 gm DAILY10 IVP 10/29/24 10:00 11/08/24 09:59 10/29/24 11:15 2 GM Clopidogrel Bisulfate (plaVIX 75MG) 75 mg DAILY PO 10/28/24 15:00 11/27/24 14:59 10/29/24 08:39 75 MG Docusate Sodium (COLace 100MG CAP) 100 mg BID PRN PO c 10/27/24 06:00 11/26/24 05:59 Doxycycline Hyclate (Doxycycline 100mg+NS 250ml) 100 mg BID IV 10/27/24 09:00 11/06/24 08:59 10/29/24 08:38 100 MG Ferrous Sulfate (Ferrous Sulfate) 325 mg DAILY PO 10/29/24 09:00 11/28/24 08:59 10/29/24 08:38 325 MG Furosemide (LASix 40MG VIAL) 40 mg Q12H IV 10/27/24 06:00 10/28/24 22:58 DC 10/28/24 18:26 40 MG Hydralazine HCl (APRESOLine 20MG INJ) 5 mg Q6H PRN IV ADMINISTER FOR SBP > 160 10/27/24 12:30 11/26/24 12:29 Insulin Human Regular (humuLIN R 100 UNIT/ML 3ML) INSULIN SLIDING SCAL... ACHS SQ 10/27/24 07:30 10/27/24 12:06 DC 10/27/24 09:17 6 UNIT Ipratropium [place] (AtrovENT UD) 0.5 mg [id number] IH 10/27/24 06:00 11/26/24 05:59 10/29/24 06:33 0.5 MG Lactulose (Constulose 20gm/ 30ml Udcup) 20 gm Q6H PRN PO CONSTIPATION 10/27/24 06:00 11/26/24 05:59 Magnesium Sulfate 50 ml @ 0 mls/hr PROTOCOL PRN IV HYPOMAGNESEMIA 10/29/24 06:00 11/28/24 05:59 10/29/24 06:08 25 MLS/HR Montelukast Sodium (SinguLAIR) 10 mg DAILY PO 10/29/24 09:00 11/28/24 08:59 10/29/24 08:39 10 MG Ondansetron HCl (zoFRAN 4MG INJ) 4 mg Q6H PRN IVP NAUSEA/VOMITING 10/27/24 06:00 11/26/24 05:59 Potassium Chloride 100 ml @ 100 mls/hr AD PRN IV POTASSIUM PROTOCOL 10/28/24 06:00 11/27/24 05:59 Potassium Chloride (K-Dur/Klor-Con 20meq) 20 meq AD PRN PO POTASSIUM PROTOCOL 10/28/24 06:00 11/27/24 05:59 10/28/24 08:50 20 MEQ Potassium Chloride (KCl 10% Elixir 20meq/15ml) 20 meq AD PRN PO POTASSIUM PROTOCOL 10/28/24 06:00 11/27/24 05:59 10/28/24 06:06 20 MEQ Temazepam (restORIL 15 MG CAP) 15 mg HS PRN PO INSOMNIA/SLEEP 10/27/24 06:00 11/26/24 05:59 Diagnostics / Radiology: [COPY/PASTE HERE IF NO REPORTS PLEASE DELETE SECTION] Assessment: Positive FOBT JNA Rectal prolapse with oozing Plan: No plan for repeat endoscopies Patient to f/u with colorectal surgery outpatient Monitor hgb and transfuse as needed JARED BRENNER PRINT PRODUCER Oct 29, 2024 11:34
[2024-10-29 11:43] VITALS: PULSE 100; RESP 16
[2024-10-29] MEDS ORDERED: ATOR40TA69 PO (13:25)
[2024-10-29] MEDS ORDERED: ASPI-1005 PO (13:25)
[2024-10-29] MEDS ORDERED: FERR324T4 PO (13:25)
[2024-10-29] MEDS ORDERED: DOXY100C5 PO (13:25)
--- NOTE | 2024-10-29 13:29 | DS ---
Discharge Summary Hospital Course Summary: DATE OF ADMISSION: 10/27/2024] DATE OF DISCHARGE:[10/29/2024] DISPOSITION:[Home] CONDITION:[Medically stable] CONSULTANTS:[GI, pulmonology] FOLLOW UP APPOINTMENTS:[PCP 2 to 3 days. GI within one week. Rover Tender within one week] PROCEDURES:[None] IMAGING: report attached to summary MICROBIOLOGY: report attached to summary ACTIVITY:[Independent] HOME MEDICATIONS: see [facility] NEW MEDICATIONS:[Aspirin 81 mg p.o. daily, atorvastatin 40 mg p.o. at bedtime, doxycycline 100 mg p.o. b.i.d. times five days. Photo sulfate 325 mg p.o. 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 He presented to the ED with c/o SOB and Chest pain. Apparently he woke up early this morning due to chest pain. He also has h/o of chronic smoking for many years recently quit. Admitted for CHF exacerbation and acute respiratory failure requiring oxygen supplementation via nasal canula. He was started with IV antbx with doxy and rocephin. Throughout the hospitalization patient was evaluated by the GI doctor but no intervention to be performed at this moment since patient's H&H is stable. Patient was also evaluated by the curing finisher and at this moment they recommend outpatient follow-up for PFTs and sleep study apnea outpatient. Patient underwent venous Doppler which was negative for DVT. Chest CT which was negative for PE 2D echo which showed EF 55 to 60% normal function, chest x-ray negative. Patient will be discharged home is cleared by all the consultants. Follow up with PCP in 2 to 3 days. Follow up with GI within one week. Follow up with curing finisher within one week. Patient denies any shortness of breath, chest pain, nausea, vomiting or any other discomfort. Procedure(s): 12-point ROS reviewed with patient. All pertinent positives mentioned above. Otherwise negative, noncontributory, or non-pertinent. PHYSICAL EXAM GENERAL APPEARANCE: The patient is awake, alert, and oriented, in no acute cardiopulmonary distress. NEUROLOGICAL: Cranial nerves II-XII grossly intact. Motor is 5/5 in bilateral upper and lower extremities proximal to distal. No sensory deficits. HEENT: Face is symmetric. Pupils are equal and reactive. Extraocular movements are intact. NECK: Supple. No JVD. No thyromegaly. No submental, submandibular, pre- /postauricular, occipital or supraclavicular lymphadenopathy. CHEST: Normal chest expansion. No Telemetry. LUNGS: Absence of any rales, rhonchi or any wheezing. CARDIOVASCULAR: Regular. S1 and S2 normal. No appreciable rubs, murmurs or gallops. ABDOMEN: Soft, nontender, and nondistended. There is no rebound, voluntary guarding, or rigidity. : Deferred. No Chan. EXTREMITIES: Non-edematous and not cyanotic. No clubbing. Good capillary refill. SKIN: No skin breakdown. Assessment/Plan: ASSESSMENT: Acute hypoxemic respiratory failure, POA Acute exacerbation of CHF, POA Acute blood loss, fecal stool positive POA Coronary artery disease s/p reason heart artery stents Uncontrolled Hypertension Acute kidney injury Electrolyte imbalance hyponatremia K 3.5 Severe anemia History of severe bleeding hemorrhoids July 2024 History of tobacco use Home Medications: Reported Medications Duloxetine HCl (Duloxetine HCl) 30 Mg Capsule.dr, 1 PO DAILY 10/27/24 Clopidogrel Bisulfate (Clopidogrel) 75 Mg Tablet, 1 TAB PO DAILY 10/27/24 Ezetimibe (Ezetimibe) 10 Mg Tablet, 1 PO DAILY 10/27/24 Atorvastatin Calcium (Atorvastatin Calcium) 40 Mg Tablet, 1 TAB PO DAILY 10/27/24 Losartan Potassium (Losartan Potassium) 50 Mg Tablet, 1 TAB PO BID 10/27/24 Metoprolol Succinate (Metoprolol Succinate) 50 Mg Tab.er.24h, 1 TAB PO DAILY 10/27/24 Discontinued Scripts Cyclobenzaprine HCl (Flexeril) 10 Mg Tab, 10 MG PO TID for muscle sstiffness, #14 TAB 0 Refills Prov:CONOR DANIEL NP 06/12/24 Methylprednisolone (Medrol) 4 Mg Tab.ds.pk, 4 MG PO AD, #1 UNIT Prov:CONOR DANIEL NP 06/12/24 Ibuprofen (Ibuprofen 800 mg Tab) 800 Mg Tab, 800 MG PO Q8H PRN for fever or pain, #30 TAB 0 Refills Prov:CONOR DANIEL NP 06/12/24 Time spent arranging discharge: 31-60 minutes ATTESTATION BY PHYSICIAN I have seen and examined the patient. I reviewed the documentation, medical decision making, and treatment plan as noted by the mid-level provider above. I agree with the findings and plan of care. ANGEL LUCIA MD, KATARZYNA B PEST CONTROLLER Oct 29, 2024 13:29
--- NOTE | 2024-10-29 13:46 | PN ---
[facility] PROGRESS NOTE Date Patient Seen: Oct 29, 2024 Time of Visit: 13:46 Supervising Physician: [Dr. Block] Primary Care Physician: Tara Cortés MD Outpatient Specialists: Inpatient Consults: DREA Wiley PROBLEM LIST: Acute hypoxemic respiratory failure, POA Suspected Acute on Chronic Diastolic Heart Failure POA Acute anemia from blood loss, fecal stool positive POA CAD s/p recent Stent Uncontrolled Hypertension FANNY not POA History of severe bleeding hemorrhoids July 2024 Former smoker Suspected COPD undiagnosed Suspected Undiagnosed and untreated sleep apnea (STOP BANG Score of 5 High risk for moderate to severe MARITZA) and serum CO2 on admission 27 INTERVAL HISTORY: This is a 54 year old male with a pertinent history for hypertension and CAD his recent stenton asa and plavix, who presented to the emergency department for evaluation of cough for the past month and evaluation of hypertension, and chest pain. In the emergency department his blood pressure was in the 200 systolic. He was admitted by the [facility] team for hypoxemic respiratory failure, anemia and suspected CHF. He was started on doxycycline and Rocephin IV, Lasix 40 mg q.12 hours IV, Atrovent neb treatments, he had an elevated D-dimer so CTA was ordered and resulted negative for pulmonary embolism, 2D echo was done and diastolic function appeared normal and EF of 55-60%. 10/29 Patient was admitted for hypoxemic respiratory failure, suspected acute blood loss anemia and CHF exacerbation. He has a history of recent stent placement and arousal two months prior to admission and was on dual antiplatelet therapy for the same. Patient was also recently hospitalized at [facility] where he was treated with transfusions for heavy hemorrhoidal bleeding. He had a this admission and GI was consulted for evaluation. Patient was recommended to follow up with Colorectal surgery outpatient, without current plans for endoscopy/colonoscopy. Patient is considered for discharge today per primary, has been advised to follow with pulmonology outpatient for PFT and sleep study, patient verbalized understanding. REVIEW OF SYSTEMS: General: No malaise or fever. Neurological: No fainting episodes or seizures. HEENT: No nasal congestion or nasal secretion. Respiratory: no cough, sob at rest Cardiac: No chest pain or palpitations. Gastrointestinal: No vomiting or diarrhea. Genitourinary: No dysuria hematuria. Skin: No rashes or lesions. Hematological: No bruises or bleeding. Musculoskeletal: No joint pains or arthralgias. Psychiatric: No depression or panic attacks. PHYSICAL EXAM: GENERAL: alert, weak, awake oriented x 3 HEENT: EOMI, Sclera non icteric, moist mucosa NECK: Supple, no JVD, trachea midline LUNGS: Diminished breath sounds bilaterally. No wheezes HEART: Regular rate and rhythm. Normal S1 and S2, without murmurs ABD: Abdomen soft, nontender. Bowel sounds present EXT: No clubbing cyanosis or edema NEURO: Alert and oriented to person, follows commands Vital Signs (last 8hr) Date Time Temp Pulse Resp B/P (MAP) Pulse Ox O2 Delivery O2 Flow Rate FiO2 10/29/24 11:43 100 16 10/29/24 11:33 98.6 87 20 141/62 98 Room Air 10/29/24 08:00 98 Room Air* 0 21 10/29/24 07:35 97.9 86 20 134/63 98 Room Air 10/29/24 06:35 91 18 N/A Room Air 21 10/29/24 06:35 91 16 LABS: Hematology Labs: Test 10/29/24 08:46 10/29/24 03:39 10/28/24 13:08 Range/Units White Blood Count 6.3 4.8-10.8 K/uL Red Blood Count 4.16 L 4.50-6.20 MIL/uL Hemoglobin 8.8 L 14.0-18.0 g/dL Hematocrit 30.0 L 42-54 % Mean Corpuscular Volume 72.1 L 79-99 fL Mean Corpuscular Hemoglobin 21.2 L 27.0-33.0 pg Mean Corpuscular Hemoglobin Concent 29.3 L 32.0-36.0 g/dL Red Cell Distribution Width 20.3 H 11.0-15.5 % Platelet Count 440 H 130-400 K/uL Mean Platelet Volume 10.5 7.5-10.5 fL Nucleated Red Blood Cells 0.0 0.0-0.19 % Immature Granulocyte % (Auto) 0.3 0-1 % Neutrophils (%) (Auto) 49.8 40.0-77.0 % Lymphocytes (%) (Auto) 39.0 21.0-51.0 % Monocytes (%) (Auto) 7.9 3.0-13.0 % Eosinophils (%) (Auto) 2.4 0.0-8.0 % Basophils (%) (Auto) 0.6 0.0-5.0 % Neutrophils # (Auto) 3.5 1.8-7.7 K/uL Lymphocytes # (Auto) 2.8 1.0-4.8 K/uL Monocytes # (Auto) 0.6 0.1-1.0 K/uL Eosinophils # (Auto) 0.17 0.00-0.70 K/uL Basophils # (Auto) 0.04 0.00-0.20 K/uL Absolute Immature Granulocyte (auto 0.02 0-1 K/uL Segmented Neutrophils % 67 40-70 % Lymphocytes % (Manual) 28 22-44 % Monocytes % (Manual) 5 2-9 % Differential Comment MANUAL DIFFERENTIAL White Cell Morphology Comment REACTIVE LYMPHS 1+ Platelet Morphology Comment INCREASED Red Blood Cell Morphology See comments Chemistry Labs: Test 10/29/24 11:12 10/29/24 03:39 10/28/24 16:07 10/28/24 13:08 Range/Units Whole Blood Glucose 149 H 70-110 MG/DL Sodium Level 143 136-145 mmol/L Potassium Level 4.3 3.5-5.1 mmol/L Chloride Level 105 101-111 mmol/L Carbon Dioxide Level 30 21-32 mmol/L Blood Urea Nitrogen 26 H 7-18 mg/dL Creatinine 1.3 0.5-1.3 mg/dL Glomerular Filtration Rate Calc 66 >90 mL/min Random Glucose 109 H 70-105 mg/dL Total Calcium 9.4 8.5-10.1 mg/dL Magnesium Level 1.80 1.80-2.40 mg/dL Iron Level 13 L 65-175 mcg/dL Ferritin 7 L 30-400 ng/mL Total Bilirubin 0.3 0.2-1.0 mg/dL Aspartate Amino Transf (AST/SGOT) 22 10-37 U/L Alanine Aminotransferase (ALT/SGPT) 40 12-78 U/L Alkaline Phosphatase 63 50-136 U/L Total Protein 7.5 6.0-8.3 g/dL Albumin 3.5 3.5-5.0 g/dL Procalcitonin < 0.05 L 0.05-0.5 ng/mL Bedside Glucose Comment Notified Nurse Total Iron Binding Capacity 405 250-450 mcg/dL Percent Iron Saturation 2.7 L 30-44 % Vitamin D 25-Hydroxy 24.2 30.0-100.0 ng/mL Test 10/28/24 04:11 Range/Units Phosphorus Level 4.6 2.5-4.9 mg/dL B-Type Natriuretic Peptide 148 H 0-100 pg/mL Vitamin B12 Level 2367 H 193-986 pg/mL DIAGNOSTICS / RADIOLOGY RESULTS: [reviewed] PLAN Given exposure of smoking for many years, patient likely has a developed COPD with exacerbation. Patient to follow up as outpatient at pulmonary clinic in two weeks for PFTs, we will continue with nebulizer treatments with atrovent, and Pulmicort. Singulair 10 mg daily Follow respiratory cultures Maintain O2 sats above 88% smoking cessation -Arrange outpatient pulmonology referral for sleep study, PFT and follow-up management upon discharge NEURO: Minimize central acting medications as possible. Maintain fall precautions, adequate lighting during the day PULMONARY: Supplemental 02 as needed. Maintain aspiration precautions at all times CARDIOVASCULAR: Follow hemodynamics. Vital signs per facility protocol GI & NUTRITION: Continue with nutritional support. Continue stool softeners and laxatives as needed. KIDNEYS & ELECTROLYTES: Strict monitoring of intake, output and overall fluid balance. Avoid nephrotoxic medications to the extent possible. Medications to be dosed according to renal function. Monitor electrolytes and replace as needed ENDOCRINE: Maintain blood glucose between 100-180 at all times. Hypoglycemia protocol in place INFECTIOUS DISEASE: Trend temperature, WBC and procalcitonin level Follow cultures, deescalate antibiotics as soon as possible. Panculture if new onset fever ONCOLOGY/HEMATOLOGY/COAGULATION: Monitor for s/s of bleeding Monitor hemoglobin, coagulation studies as needed SKIN: Pressure ulcer prevention per facility protocol Specialty mattress ORTHO/REHAB: Continue PT/OT Prophylaxis: Continue GI and DVT prophylaxis Code Status: Full Resuscitation Disposition: per primary team Other: Total patient care time exceeds 35 minutes excluding all procedures. SINCERE NICOLE Oct 29, 2024 13:46
--- NOTE | 2024-10-29 14:17 | NUR ---
CM NOTE CM discussed discharge with Leona Raygoza NP. Verified no skilled need for home health and orders corrected in [facility].
--- NOTE | 2024-10-29 16:10 | NUR ---
GIVEN DISMISSAL INSTRUCTIONS, VERBALIZED UNDERSTANDING. REMOVED SALINE LOCK FROM RIGHT ARM, IV SITE WITHOUT REDNESS NOTED, REMOVED TELE PACK. TAKEN TO PRIVATE CAR ALONG WITH PERSONAL BELONGINGS VIA WHEELCHAIR BY ABDOULAYE SANTOS.
== END 2024-10-29 16:15 | disposition home or self-care (01) ==
LOC: EDH 23:44 → INTOOBSV 10-27 02:16 → EDHIP 10-27 02:16 → 2DH 10-27 18:53
PROVIDERS: ADMIT Internal Medicine; ATTEND Internal Medicine
DX: J96.01 Acute respiratory failure with hypoxia (principal); Z20.822 Contact with and (suspected) exposure to COVID-19; I11.0 Hypertensive heart disease with heart failure; I50.9 Heart failure, unspecified; D50.0 Iron deficiency anemia secondary to blood loss (chronic); I25.10 Atherosclerotic heart disease of native coronary artery without angina pectoris; N17.9 Acute kidney failure, unspecified; E87.1 Hypo-osmolality and hyponatremia; I25.2 Old myocardial infarction; J44.1 Chronic obstructive pulmonary disease with (acute) exacerbation; R60.0 Localized edema; F17.210 Nicotine dependence, cigarettes, uncomplicated; K62.3 Rectal prolapse; K20.90 Esophagitis, unspecified without bleeding; Z95.5 Presence of coronary angioplasty implant and graft; Z86.0100 Personal history of colon polyps, unspecified; Z79.899 Other long term (current) drug therapy; Z86.2 Personal history of diseases of the blood and blood-forming organs and certain disorders involving the immune mechanism
CPT/HCPCS: 71045 ×2; 93005 ×2; 96376 ×2; 96372; 96365; 96366 ×3; 96375; 96367 ×2; 99285; 83036; 84443; 83540 ×3; 83550 ×2; 82550; 84484 ×3; 80053 ×2; 82803 ×2; 83880 ×3; 85025 ×4; 85027 ×5; 85378; 82948 ×8; 82270; 81003; 36415 ×3; 71270; 93306; 93356; 93970; 36600 ×2; 83735 ×2; 84100; 80048; 87880; 87804 ×2; 82306; 82607; 87426; 82728; 94640; 84145; G0378 ×28; J1956; J2919; J0696 ×3; J3490 ×6; J1940 ×4; J1815; Q9967; J3475; 94664

== ENCOUNTER → 2024-12-24 | Outpatient (CLI) | payer OTHER ==
[~2024-12-24] MED LIST changes: +ASPI-1005 PO; +ATOR40TA69 PO; +ATOR40TA71 PO; +CLOP75TA32 PO; +CYCL-309 PO; -CYCL10TA16 PO; +DOXY100C5 PO; +DULO30CA52 PO; +EZET10TA48 PO; +FERR324T4 PO; +LOSA50TA64 PO; -METH4TAB3 PO; +METO-391 PO; +OMEP40CA21 PO; +PRED20TA3 PO
--- NOTE | 2024-12-24 15:17 | HMCIMG ---
LUMBAR W FLEXION/EXTENSION REASON: Radiculopathy, lumbar region. COMPARISON: None TECHNIQUE: 4 images of lumbar spine were obtained including flexion and extension views. FINDINGS: Grade 1 anterolisthesis is seen at the L4-5 level. Disc space narrowing is seen at the L4-5 level. No loss of vertebral height is seen. There are degenerative changes with spondylosis. IMPRESSION: Findings as described above.
--- NOTE | 2024-12-24 16:20 | HMCIMG ---
CT LUMBAR SPINE W/O CONTRAST HISTORY: Lumbar radiculopathy COMPARISON: None TECHNIQUE: Multiple sequential axial images of the lumbar spine were obtained including post processing sagittal and coronal reconstruction images. Patient was not given contrast through intravenous route. FINDINGS: There are mild degenerative changes in lumbar spine spondylosis. Minor disc bulge with bilateral ligamentum flavum hypertrophy throughout the lumbar spine causing bilateral neural foraminal stenosis and central canal narrowing. There is no loss of vertebral height. Evaluation for disc and cord pathology is limited with CT study. No evidence of fracture or dislocation is seen. IMPRESSION: 1. No fracture is seen. 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 CT was performed with one or more following dose reduction techniques: automated exposure control, adjustment of the mA and kv according to patient's size, or use of a iterative reconstruction technique.
== END | disposition home or self-care (01) ==
LOC: RAH 13:41
PROVIDERS: ATTEND Physical Medicine & Rehabilitation
DX: M47.26 Other spondylosis with radiculopathy, lumbar region (principal); M43.16 Spondylolisthesis, lumbar region; M48.061 Spinal stenosis, lumbar region without neurogenic claudication; M51.369 Other intervertebral disc degeneration, lumbar region without mention of lumbar back pain or lower extremity pain
CPT/HCPCS: 72114; 72131

== ENCOUNTER 2025-06-16 11:32 | Emergency (ER) | payer OTHER ==
[~2025-06-16] VITALS: Ht 165.1 cm; Wt 79.4 kg
[~2025-06-16 11:32] MED LIST changes: -EZET10TA48 PO; +EZET10TA80 PO
[2025-06-16 11:59] LABS: IMMATURE GRANULOCYTE ABSOLUTE 0.03 K/uL (0-1); NUCLEATED RED BLOOD CELLS 0.0 % (0.0-0.19); PLATELET COUNT (AUTO) 241 K/uL (130-400); RED BLOOD CELL COUNT(AUTO) 5.06 MIL/uL (4.50-6.20); RED CELL DISTRIBUTION WIDTH 13.8 % (11.0-15.5); WHITE BLOOD COUNT (AUTO) 9.8 K/uL (4.8-10.8)
[2025-06-16 12:10] LABS: CREATININE 1.1 mg/dL (0.5-1.3); GLOMERULAR FILTR. RATE CALC 80.0 mL/min (>90); GLUCOSE,RANDOM 159.0 mg/dL (70-105); SODIUM SERUM 142.0 mmol/L (136-145); UREA NITROGEN, BLOOD 15.0 mg/dL (7-18)
--- NOTE | 2025-06-16 12:48 | EKG ---
[facility] Test Date: 2025-06-16 Test Time: 11:51:14 Pat Name: DONNIE SAWYER Department: [facility] Room: Gender: M Textbook Associate: [id number] : 1970 Requested By: ESSIE NULL Order Number: [id number] Reading MD: Measurements Intervals [place] Rate: 86 P: 53 ND: 125 QRS: 43 QRSD: 88 T: 2 QT: 339 QTc: 405 Interpretive Statements Sinus rhythm Inferior infarct, old No previous ECG available for comparison Please click the below link to view image of tracing.
--- NOTE | 2025-06-16 12:55 | HMCIMG ---
EXAM: CR Chest, 1 View. CLINICAL HISTORY: chest pain, cough COMPARISON: None provided. FINDINGS: LUNGS: There is no mass, infiltrate, or acute pulmonary abnormality. PLEURAL SPACES: No pleural effusion or pneumothorax. MEDIASTINUM: The cardiomediastinal silhouette is within normal limits. BONES: No acute osseous abnormality. IMPRESSION: No acute cardiopulmonary pathology is evident. /Malone
[2025-06-16 13:45] VITALS: BP 150/80; PULSE 90; RESP 16; TEMP 98.1; O2SAT 98
[2025-06-16 14:09] LABS: COVID19 (SARS ANTIGEN RAPID) PRESUMPTIVE NEGATIVE (NEGATIVE); INFLUENZA TYPE A Negative For Type A (NEGATIVE); INFLUENZA TYPE B Negative For Type B (NEGATIVE)
[2025-06-16] MEDS ORDERED: ALBUHFA IH (14:21)
[2025-06-16] MEDS ORDERED: AZIT250T9 PO (14:21)
[2025-06-16] MEDS ORDERED: PRED20TA3 PO (14:21)
--- NOTE | 2025-06-16 14:23 | ERN ---
General Chief Complaint: Cough Stated Complaint: COUGH, CHEST PRESSURE, SOB Time Seen by MD: 11:35 History of Present Illness Initial Comments 55-year-old male who presents for chest tightness and dyspnea. Patient reports that about three months ago he had an episode for a few days but he felt tightness when he took deep respirations and he had a cough with mild wheezing. He reports those symptoms have resolved but yesterday he developed similar symptoms. He reports some generalized chest tightness when taking deep respir ations. Mild dyspnea, especially on exertion. Mild dry cough without sputum production. No swelling. No cardiac type chest pain. He does report that he was a heavy smoker until about three months ago. Allergies: Coded Allergies: No Known Allergies (Unverified Allergy, Unknown, 06/12/24) Home Meds Active Scripts Omeprazole (Omeprazole) 40 Mg Capsule.dr, 1 CAP PO DAILY for 30 Days, #30 CAP 0 Refills Prov:CONOR DANIEL BUCKET PUSHER 11/28/24 Prednisone (Prednisone) 20 Mg Tablet, 1 TAB PO AD for 6 Days, #14 TAB 0 Refills TAKE 1 TAB BY MOUTH THREE TIMES PER DAY X3 DAYS, THEN TAKE 1 TAB BY MOUTH TWICE A DAY X2 DAYS, THEN TAKE 1 TAB BY MOUTH ONCE A DAY X1 DAY. Prov:CONOR DANIEL NP 11/28/24 Ibuprofen (Ibuprofen 800 mg Tab) 800 Mg Tab, 800 MG PO Q8H PRN for fever or pain, #30 TAB 0 Refills Prov:CONOR DANIEL NP 11/28/24 Cyclobenzaprine HCl (Cyclobenzaprine HCl) 10 Mg Tablet, 1 TAB PO TID for muscle spasms for 10 Days, #30 TAB 0 Refills Prov:CONOR DANIEL NP 11/28/24 Doxycycline Hyclate (Doxycycline Hyclate) 100 Mg Capsule, 100 MG PO BID, #10 CAP Prov:TEMITOPE MORAN B TANK HOOP BENDER 10/29/24 Ferrous Sulfate (Ferrous Sulfate) 324 Mg (65 Mg Iron) Tablet.dr, 325 MG PO DAILY, #30 TAB Prov:MOIZ MORANA B TANK HOOP BENDER 10/29/24 Atorvastatin Calcium (LIPITOR) 40 Mg Tablet, 40 MG PO HS, #60 TAB Prov:TEMITOPE MORAN TANK HOOP BENDER 25 Aspirin (ASPIRIN 81MG CHEW TAB) 81 Mg Tab.chew, 81 MG PO DAILY, #60 TAB.CHEW Prov:TEMITOPE MORAN APRN 10/29/24 Reported Medications Duloxetine HCl (Duloxetine HCl) 30 Mg Capsule.dr, 1 PO DAILY 10/27/24 Clopidogrel Bisulfate (Clopidogrel) 75 Mg Tablet, 1 TAB PO DAILY 10/27/24 Ezetimibe (Ezetimibe) 10 Mg Tablet, 1 PO DAILY 10/27/24 Atorvastatin Calcium (Atorvastatin Calcium) 40 Mg Tablet, 1 TAB PO DAILY 10/27/24 Losartan Potassium (Losartan Potassium) 50 Mg Tablet, 1 TAB PO BID 10/27/24 Metoprolol Succinate (Metoprolol Succinate) 50 Mg Tab.er.24h, 1 TAB PO DAILY 10/27/24 Past Medical History Past Medical History: Anemia, CAD, Hypertension, HI, Pneumonia, Other Medical History Other: SCIATICA Past Surgical History: Other Surgical History Other: CARDIAC STENTS Family History Family History: Negative Social History Social History: Smokers ROS Dictation CONSTITUTIONAL: No chills, no fever, no weakness, no diaphoresis, no malaise. HEAD/FACE: No signs of trauma. EENT: No eye pain, no blurred vision, no tearing, no double vision, no ear pain, no ear discharge, no nose pain, no nasal congestion, no throat pain, no throat swelling, no mouth pain. RESPIRATORY: Chest tightness, dyspnea CARDIOVASCULAR: No chest pain, no edema, no palpitations, no syncope. GASTROINTESTINAL/ABDOMINAL: No abdominal pain, no constipation, no diarrhea, no nausea, no vomiting. GENITOURINARY: No abnormal discharge, no dysuria, no frequent urination, no hematuria. No complaints of pain in the genitals. MUSCULOSKELETAL: No back pain, no gout, no joint pain, no joint swelling, no muscle pain, no muscle stiffness, no neck pain. INTEGUMENTARY: No change in color, no change in hair/nails, no dryness, no lesion, no lumps, no rash. NEUROLOGICAL/PSYCH: No anxiety, not depressed, no emotional problem, no headache, no numbness, no pre-existing deficit, no history of seizures, no tremors, no weakness. HEMATOLOGIC/LYMPHATIC: Not anemic, no history of blood clots, no apparent bleeding, no bruising, glands not swollen. All Systems Negative, Except as Noted. Physical Exam Physical Exam Dictation VITAL SIGNS: Reviewed. GENERAL APPEARANCE: Alert, oriented x3, no acute distress HEAD AND FACE: Non-traumatic. EYES: PERRL, pink conjunctivas, eyelid no trauma, anterior chamber clear. EARS: Pinnas intact and no signs of trauma or erythema. Ear canals clear and no discharge. TMs no erythema. NOSE: No discharge, no bleeding. OROPHARYNX: Mouth normal, teeth no caries, tongue pink. Pharynx clear, no erythema. Tonsils no exudates, no abscesses noted. Mucous membrane moist. NECK: Supple, non-tender, no thyromegaly, no masses, no JVD, no bruits. BREAST: Deferred. CHEST: No tenderness, no crepitus, no paradoxical movement, no retractions. LUNGS: Clear, well-ventilated, symmetric, no rales, no wheezing, no rhonchi, no stridor, good breath sounds bilaterally. HEART: Regular rate, regular rhythm, no murmur, no gallops. VASCULAR: No peripheral edema. ABDOMEN: Soft, positive bowel sounds, nondistended, no guarding, nontender, no rebound, no masses no hepatomegaly, no splenomegaly, no Epperson's sign, no hernias. RECTAL: Deferred. GENITAL: Deferred. NEUROLOGICAL: Normal speech, gross motor function intact, gross sensory function intact. MUSCULOSKELETAL: Neck nontender, full range of motion, back nontender, full range of motion. EXTREMITIES: Nontender, full range of motion. SKIN: Color pink, dry, no turgor, no rash, no lacerations, no abrasions, no contusions. LYMPHATICS: Deferred. Results Laboratory and Microbiology Lab and Micro Result Laboratory Tests Test 06/16/25 11:53 06/16/25 13:42 White Blood Count 9.8 K/uL (4.8-10.8) Red Blood Count 5.06 MIL/uL (4.50-6.20) Hemoglobin 14.0 g/dL (14.0-18.0) Hematocrit 43.6 % (42-54) Mean Corpuscular Volume 86.2 fL (79-99) Mean Corpuscular Hemoglobin 27.7 pg (27.0-33.0) Mean Corpuscular Hemoglobin Concent 32.1 g/dL (32.0-36.0) Red Cell Distribution Width 13.8 % (11.0-15.5) Platelet Count 241 K/uL (130-400) Mean Platelet Volume 10.5 fL (7.5-10.5) Immature Granulocyte % (Auto) 0.3 % (0-1) Neutrophils (%) (Auto) 79.0 % (40.0-77.0) H Lymphocytes (%) (Auto) 13.5 % (21.0-51.0) L Monocytes (%) (Auto) 4.8 % (3.0-13.0) Eosinophils (%) (Auto) 2.2 % (0.0-8.0) Basophils (%) (Auto) 0.2 % (0.0-5.0) Neutrophils # (Auto) 7.8 K/uL (1.8-7.7) H Lymphocytes # (Auto) 1.3 K/uL (1.0-4.8) Monocytes # (Auto) 0.5 K/uL (0.1-1.0) Eosinophils # (Auto) 0.22 K/uL (0.00-0.70) Basophils # (Auto) 0.02 K/uL (0.00-0.20) Absolute Immature Granulocyte (auto 0.03 K/uL (0-1) Nucleated Red Blood Cells 0.0 % (0.0-0.19) Sodium Level 142 mmol/L (136-145) Potassium Level 3.8 mmol/L (3.5-5.1) Chloride Level 106 mmol/L (101-111) Carbon Dioxide Level 30 mmol/L (21-32) Blood Urea Nitrogen 15 mg/dL (7-18) Creatinine 1.1 mg/dL (0.5-1.3) Glomerular Filtration Rate Calc 80 mL/min (>90) Random Glucose 159 mg/dL (70-105) H Total Calcium 9.0 mg/dL (8.5-10.1) Troponin I High Sensitivity 52 ng/L (4-75) B-Type Natriuretic Peptide 54 pg/mL (0-100) Influenza Type A Antigen Negative For Type A Influenza Type B Antigen Negative For Type B SARS-CoV-2 Antigen (Rapid) PRESUMPTIVE NEGATIVE MDM CC: Dyspnea and dry cough with chest tightness Historian: Patient Comorbidities: Long smoking history. No limitations by social determinants. Vital signs are stable Clinical exam shows some prolonged expiratory phase without wheezing, cardiac exam is normal, nontoxic in appearance. EKG sinus rhythm rate of 86 with a normal axis good R-wave progression intervals are stable. Does have Q-waves in lead three and AVF consistent with previous pathology. No STEMI. Independently interpreted by me. The chest x-ray per my independent interpretation shows no cardiomegaly pleural effusions or focal infiltrates The labs show no leukocytosis, no anemia, normal chemistry panel, normal BNP, normal troponin. Symptoms are most consistent with bronchitis/emphysema. I suspect he does have longstanding emphysema in his having a flare-up. He has never been tested before. Treatment in ED included Solu-Medrol and Toradol shot. Plan will be to discharge with azithromycin, steroids, and an albuterol inhaler. We will recommend PCP follow up. Patient agrees with the plan. ED Course Orders Procedure Category Date Status Time Covid19 (Sars Antigen LAB 06/16/25 Complete Rapid) 11:42 Influenza Type A & B, LAB 06/16/25 Complete Rapid 11:42 Chest 1vw RAD 06/16/25 Resulted 11:42 Cbc With Differential LAB 06/16/25 Complete 11:42 12 Lead Ekg Tracing- EKG 06/16/25 Complete Technical 11:42 Troponin I High LAB 06/16/25 Complete Sensitivity 11:42 Basic Metabolic Panel LAB 06/16/25 Complete 11:42 B-Type Natriuretic LAB 06/16/25 Complete Peptide 11:42 Methylprednisolone PHA 06/16/25 Verified Succ 125mg (Solu-Medr 14:30 Ketorolac PHA 06/16/25 Verified Tromethamine 15mg/Ml 14:30 Vital Signs Date Time Temp Pulse Resp B/P (MAP) Pulse Ox O2 Delivery O2 Flow Rate FiO2 06/16/25 13:45 98.1 90 16 150/80 98 Room Air* 0 21 06/16/25 11:34 98.1 93 16 153/85 98 Room Air 0 DX & DISP Disposition: Discharge Departure Impression: Primary Impression: Bronchitis Condition: Stable Scripts Azithromycin (Azithromycin) 250 Mg Tablet 1 TAB PO AD for 5 Days, #6 TAB 0 Refills 2 the first day followed by 1 for days 2-5 Prov: ESSIE NULL DO 06/16/25 Prednisone (Prednisone) 20 Mg Tablet 1 TAB PO BID for 5 Days, #10 TAB 0 Refills Prov: ESSIE NULL DO 06/16/25 Albuterol Sulfate (Ventolin Hfa/Proventil Hfa/Proair Hfa) 90 Mcg Puff 2 PUFF IH Q4HPRN PRN for wheezing for 30 Days, #18 GM 0 Refills Prov: ESSIE NULL DO 06/16/25 Additional Instructions: You have some tight lung sounds, consistent with bronchitis. As we discussed, I suspect you may have early emphysema due to your smoking history. I recommend that you follow up with the primary doctor for further treatment and evaluation. Your EKG is normal. Your chest x-ray is normal. Your blood work (CBC, metabolic panel, troponin, BNP) is normal. You received IM methylprednisolone (steroid injection) and IM Toradol (nonsteroidal anti-inflammatory injection) here in the ER. I have prescribed an albuterol inhaler. As we discussed, take two puffs every 4 hours for the next 24-48 hours. After that take two puffs as needed for respiratory distress or shortness of breath. I have prescribed prednisone, which is an anti-inflammatory steroid. Please take as prescribed. I have prescribed azithromycin, which is an antibiotic. Please take as prescribed. Please return to the emergency department if you have any concerns. Referrals: STEPHANIE SMART MD (PCP) ESSIE NULL DO Jun 16, 2025 14:23
== END 2025-06-16 14:34 | disposition home or self-care (01) ==
LOC: EDH 11:32
DX: J40 Bronchitis, not specified as acute or chronic (principal); I25.10 Atherosclerotic heart disease of native coronary artery without angina pectoris; I10 Essential (primary) hypertension; I25.2 Old myocardial infarction; F17.200 Nicotine dependence, unspecified, uncomplicated; Z79.02 Long term (current) use of antithrombotics/antiplatelets; Z79.82 Long term (current) use of aspirin; Z79.899 Other long term (current) drug therapy; Z87.01 Personal history of pneumonia (recurrent); Z95.5 Presence of coronary angioplasty implant and graft; Z20.822 Contact with and (suspected) exposure to COVID-19
CPT/HCPCS: 99285; 71045; 87426; 84484; 80048; 83880; 85025; 87804 ×2; 36415; 96372 ×2; 93005; J1885; J2919